=== PATIENT | female | born 1980 | race Caucasian/White ===

== ENCOUNTER 2021-01-19 12:24 | Outpatient (REF) | payer MEDICAID, SELFPAY | END 2021-01-19 12:25 | disposition home or self-care (01) | LOC: HO.LAB 12:24 | PROVIDERS: Visit Provider Internal Medicine | DX: Z20.822 Contact with and (suspected) exposure to COVID-19 (principal) | CPT/HCPCS: 36415; C9803; U0003; U0005 ==

== ENCOUNTER 2022-10-16 20:17 | Emergency (ER) | payer OTHER, SELFPAY ==
[2022-10-16 20:27] VITALS: BP 158/83; PULSE 91; RESP 20; TEMP 36.8; O2SAT 100; BMI 22.2
--- NOTE | 2022-10-16 20:36 | ED.SKABFB ---
HPI - Skin/Abscess/Foreign Bdy General Chief complaint: Skin/Abscess/Foreign Body <Edward Meléndez MD - Last Filed: 10/16/22 20:37> Stated complaint: rash on armpit <Edward Meléndez MD - Last Filed: 10/16/22 20:37> Time Seen by Provider: 10/16/22 20:39 <Edward Meléndez MD - Last Filed: 10/16/22 20:37> Source: patient <Chiquis Boateng CNP - Last Filed: 10/16/22 22:17> Mode of arrival: ambulatory <Chiquis Boateng CNP - Last Filed: 10/16/22 22:17> Limitations: no limitations <Chiquis Boateng CNP - Last Filed: 10/16/22 22:17> History of Present Illness HPI narrative: Patient is a 42-year-old female who presents emergency department for evaluation redness and burning pain with rash to the right axilla. First noticed this yesterday to have redness. Today after taking a shower when she went to dry off afterwards she noticed the area to be painful. Denies fevers, chills, swelling, drainage. Denies any new soaps, lotions, ointments, detergents <Chiquis Boateng CNP - Last Filed: 10/16/22 22:17> Related Data Home medications: Previous Rx's Medication Instructions Recorded hydrocortisone 1 % topical cream 1 appl topical TID PRN rash #28.35 10/16/22 grams <Edward Meléndez MD - Last Filed: 10/16/22 20:37> Allergies/Adverse reactions: Allergies Allergy/AdvReac Type Severity Reaction Status Date / Time acetaminophen [From Percocet] Allergy Rash Verified 10/16/22 20:35 levofloxacin [From Levaquin] Allergy Facial Verified 10/16/22 20:35 Swelling oxycodone [From Percocet] Allergy Rash Verified 10/16/22 20:35 <Edward Meléndez MD - Last Filed: 10/16/22 20:37> Review of Systems Review of Systems: Skin: Right axilla redness as noted in HPI <Chiquis Boateng CNP - Last Filed: 10/16/22 22:17> Yes all other systems are reviewed and are negative <Chiquis Boateng CNP - Last Filed: 10/16/22 22:17> [facility] Past Medical History Attestation statement: The following information was validated with the patient. <Chiquis Boateng CNP - Last Filed: 10/16/22 22:17> Source: old records reviewed <Chiquis Boateng CNP - Last Filed: 10/16/22 22:17> Social History Social History: Social History Advance Directives: No Advance Directives Information Provided: Yes <Edward Meléndez MD - Last Filed: 10/16/22 20:37> Physical Exam Vital Signs: Vital Signs: Last Vital Signs Temp 98.2 F 10/16/22 20:27 Pulse 91 10/16/22 20:27 Resp 20 10/16/22 20:27 BP 158/83 H 10/16/22 20:27 Pulse Ox 100 10/16/22 20:27 O2 Del Method 10/16/22 20:27 BMI result Body Mass Index 22.2 <Edward Meléndez MD - Last Filed: 10/16/22 20:37> Vital Signs: Last Vital Signs Temp 98.2 F 10/16/22 20:27 Pulse 91 10/16/22 20:27 Resp 20 10/16/22 20:27 BP 158/83 H 10/16/22 20:27 Pulse Ox 100 10/16/22 20:27 O2 Del Method 10/16/22 20:27 BMI result Body Mass Index 22.2 <Chiquis Boateng CNP - Last Filed: 10/16/22 22:17> Appearance: Alert.?Oriented to person, place and time. No acute distress.?Normal affect. Neck: Normal inspection.? Neck supple.?? CVS: Heart sounds normal. Normal heart rate and rhythm.? Pulses normal.?? Respiratory: No respiratory distress.? Lung sounds clear to auscultation bilaterally?? Abdomen: Soft and non-tender. Skin: Skin warm and dry.? Normal skin color. Right axilla with 1 cm area of maculopapular eruption, tenderness upon palpation. No warmth. No swelling. No abscess. No axillary adenopathy Extremities: No lower extremity edema.? Neuro: Moves all extremities spontaneously. Sensation intact bilaterally. Ambulates with normal steady gait. <Chiquis Boateng CNP - Last Filed: 10/16/22 22:17> Course Course Course Narrative: RME: 42-year-old female presents emergency department for evaluation of a red hot painful lump in the right axilla area. Patient not examined in triage. Most likely an abscess, no blood work ordered at this time. Patient stable was sent back to the triage area and will be brought back into the emergency department when a bed is available. <Edward Meléndez MD - Last Filed: 10/16/22 20:37> Medical Decision Making Medical Decision Making MDM Narrative: Patient is a 42-year-old female who presents emergency department for evaluation painful skin irritation at the right axilla. Physical examination consistent with a contact dermatitis, does not appear consistent with cellulitis at this time, no warmth, swelling, no signs of systemic toxicity.. Discussed daily cleansing, non scented soaps, provided with prescription for hydrocortisone cream. Discussed worrisome signs and symptoms that would warrant re-evaluation. Outpatient follow-up with primary care provider as needed. <Chiquis Boateng CNP - Last Filed: 10/16/22 22:17> Discharge Plan Discharge Clinical Impression: Contact dermatitis <Edward Meléndez MD - Last Filed: 10/16/22 20:37> Patient Disposition: Home, Self-Care <Edward Meléndez MD - Last Filed: 10/16/22 20:37> Instructions: Contact Dermatitis (ED) <Edward Meléndez MD - Last Filed: 10/16/22 20:37> Additional Instructions: As discussed, please keep the area clean and dry, use warm water and mild unscented soap. Apply steroid cream as prescribed Follow-up with your primary care provider as needed for continued symptoms Return to the emergency department with any new or worsening symptoms or concerns. <Edward Meléndez MD - Last Filed: 10/16/22 20:37> Prescriptions: New hydrocortisone 1 % cream 1 appl topical TID PRN (Reason: rash) Qty: 28.35 0RF <Edward Meléndez MD - Last Filed: 10/16/22 20:37>
== END 2022-10-16 22:30 | disposition home or self-care (01) ==
PROVIDERS: Emergency Provider Emergency Medicine
DX: L25.9 Unspecified contact dermatitis, unspecified cause (principal)
CPT/HCPCS: 99281; 99283

== ENCOUNTER 2022-12-18 13:53 | Emergency (ER) | payer OTHER, SELFPAY ==
--- NOTE | ~2022-12-18 | XR_ITS ---
EXAMINATION: XR CHEST CLINICAL INFORMATION: Chest pain COMPARISON: None TECHNIQUE: 2 views of the chest were obtained. FINDINGS: The lungs are clear. No airspace consolidation, pleural effusion, or pneumothorax. The cardiomediastinal silhouette is within normal limits. No acute osseous injury. XR/XR chest 2V IMPRESSION: No acute pulmonary process.
--- NOTE | ~2022-12-18 | CT_ITS ---
EXAMINATION: CT CERVICAL SPINE WITHOUT CONTRAST CLINICAL INFORMATION: Headaches and arm pain COMPARISON: None TECHNIQUE: Thin section axial imaging with sagittal and coronal reformats are obtained. This CT examination was performed using dose optimization techniques as appropriate, variously including the following: *Automated exposure control *Adjustment of mA and/or kV according to patient size (this includes techniques or standardized protocols for targeted exams where dose is matched to indication/reason for exam; i.e. extremities or head) *Use of iterative reconstruction technique DLP: 275.55 mGy-cm FINDINGS: There is advanced degenerative change noted at C5-C6 with disc space narrowing and anterior posterior spurring which does create slight mass effect on the ventral aspect of the canal but no celine cord compression. No fracture or destructive process. Prevertebral soft tissues are normal. CT/CT cervical spine wo IV con IMPRESSION: Degenerative change noted. No acute findings.
--- NOTE | ~2022-12-18 | CT_ITS ---
EXAMINATION: CT HEAD WITHOUT CONTRAST CLINICAL INFORMATION: Headaches COMPARISON: None TECHNIQUE: Contiguous axial imaging was performed from the skull base to vertex without intravenous administration of contrast. This CT examination was performed using dose optimization techniques as appropriate, variously including the following: *Automated exposure control *Adjustment of mA and/or kV according to patient size (this includes techniques or standardized protocols for targeted exams where dose is matched to indication/reason for exam; i.e. extremities or head) *Use of iterative reconstruction technique DLP: 652 mGy-cm FINDINGS: No intra or extra-axial fluid collection or hemorrhage, mass or mass effect. Cavum septum pellucidum and/or vergae noted. Calvarium intact. CT/CT head/brain wo IV con IMPRESSION: No acute intracranial pathology.
[2022-12-18 14:25] VITALS: BP 168/111; PULSE 90; RESP 20; TEMP 36.7; O2SAT 98; BMI 22.2
--- NOTE | 2022-12-18 14:28 | ED_ITS ---
HPI - Extremity Injury (Upper) General Chief Complaint: General Medical <MABLE Frias - Last Filed: 12/18/22 14:38> Stated Complaint: chest/R shoulder pain <MABLE Frias - Last Filed: 12/18/22 14:38> Time Seen by Provider: 12/18/22 17:22 <MABLE Frias - Last Filed: 12/18/22 14:38> Source: patient and bilingual interpreter <Clarissa Jc MD - Last Filed: 12/18/22 19:07> Mode of arrival: ambulatory <Clarissa Jc MD - Last Filed: 12/18/22 19:07> History of Present Illness HPI narrative: 42-year-old female with history of hypertension presents with 4 days of right upper extremity numbness and tingling that has not prevented her from performing her ADLs. She denies any associated fever, chills, traumatic event in states that she ?woke up 1 morning and was having this problem . She denies any sore throat, cough, neck pain and denies any other associated facial asymmetry, right lower extremity weakness, she states that approximately 2 days ago she began having sharp chest pain that was not associated with any recent travel and she denies any association with deep inspiration. Patient also complaints about right ankle pain that is atraumatic in nature. Patient also reports a headache and states that she took Tylenol for this. <Clarissa Jc MD - Last Filed: 12/18/22 19:07> Related Data Home Medications: Previous Rx's Medication Instructions Recorded hydrocortisone 1 % topical cream 1 appl topical TID PRN rash #28.35 10/16/22 grams ketorolac 10 mg tablet 10 mg PO Q6H PRN pain 5 days #20 12/18/22 tabs <MABLE Frias - Last Filed: 12/18/22 14:38> Allergies/Adverse Reactions: Allergies Allergy/AdvReac Type Severity Reaction Status Date / Time acetaminophen [From Percocet] Allergy Rash Verified 12/18/22 14:37 levofloxacin [From Levaquin] Allergy Facial Verified 12/18/22 14:37 Swelling oxycodone [From Percocet] Allergy Rash Verified 12/18/22 14:37 <MABLE Frias - Last Filed: 12/18/22 14:38> Review of Systems Review of Systems: Pertinent positives and negatives as stated in HPI <Clarissa Jc MD - Last Filed: 12/18/22 19:07> PMFSH Past Medical History Source: nursing notes reviewed <Clarissa Jc MD - Last Filed: 12/18/22 19:07> Social History Social History: Social History Advance Directives: No Advance Directives Information Provided: No <MABLE Frias - Last Filed: 12/18/22 14:38> Physical Exam Vital Signs: Vital Signs: Last Vital Signs Temp 98.5 F 12/18/22 18:19 Pulse 75 12/18/22 18:19 Resp 16 12/18/22 18:19 BP 165/88 H 12/18/22 18:19 Pulse Ox 100 12/18/22 18:19 O2 Del Method 12/18/22 18:19 BMI result Body Mass Index 22.2 <MABLE Frias - Last Filed: 12/18/22 14:38> Vital Signs: Last Vital Signs Temp 98.5 F 12/18/22 18:19 Pulse 75 12/18/22 18:19 Resp 16 12/18/22 18:19 BP 165/88 H 12/18/22 18:19 Pulse Ox 100 12/18/22 18:19 O2 Del Method 12/18/22 18:19 BMI result Body Mass Index 22.2 VITAL SIGNS: Reviewed. GENERAL: Well developed, well nourished, in no acute distress. HEAD: Normocephalic/atraumatic EYES: PERRLA, EOMI EARS: Ext canals without abnormality LUNGS: Normal breath sounds. No adventitious sounds or accessory muscle use. SpO2<98> CARDIOVASCULAR: Regular rate and rhythm without noted murmurs ABDOMEN: Soft, non-tender, non-distended with bowel sounds. MUSCULOSKELETAL: No tenderness, deformities, or effusions noted on gross inspection. EXTREMITIES: No cyanosis, clubbing or edema. RIGHT UPPER EXTREMITY: Shoulder without deformity/tenderness to palpations/induration/erythema, full range of motion noted; elbow without deformity, there is full range of motion, forearm is tender to palpation at the mid point without erythema/induration/injury; RIGHT ANKLE: Full range of motion, neurovascularly intact, no deformity/erythema/induration. SKIN: Inspection of the skin reveals no rashes NEUROLOGIC: Alert and oriented x 4. Strength and sensation to light touch were grossly intact x 4, no facial asymmetry, no pronator drift, cranial nerves 2-12 are grossly intact. <Clarissa Jc MD - Last Filed: 12/18/22 19:07> Course Course Course Narrative: RME: [id number]-female, with a past medical history of HTN, presenting today with complaints of right arm numbness/tingling/pain, right heel pain x 4 days, and chest pain since yesterday. Denies fevers or recent illness. She also reports stabbing chest pain. No injury or trauma to her right arm or neck. Diffuse tenderness to the right upper extremity and right heel BP 188/104 in triage. Repeat 168/111. Labs, EKG, CT c-spine and CT head ordered. Patient is stable to return to the waiting room until a room becomes available in the main ER. <MALBE Frias - Last Filed: 12/18/22 14:38> Medications Administered Discontinued Medications Generic Name Dose Route Start Last Admin Trade Name Freq PRN Reason Stop Dose Admin Acetaminophen 975 mg 12/18/22 17:49 12/18/22 18:21 Acetaminophen 325 Mg Tablet PO 12/18/22 17:50 975 mg ONCE ONE Administration Ketorolac Tromethamine 15 mg 12/18/22 17:49 12/18/22 18:20 Ketorolac Tromethamine 15 Mg/Ml Vial IM 12/18/22 17:50 15 mg ONCE ONE Administration <MABLE Frias - Last Filed: 12/18/22 14:38> Medications Administered Discontinued Medications Generic Name Dose Route Start Last Admin Trade Name Freq PRN Reason Stop Dose Admin Acetaminophen 975 mg 12/18/22 17:49 12/18/22 18:21 Acetaminophen 325 Mg Tablet PO 12/18/22 17:50 975 mg ONCE ONE Administration Ketorolac Tromethamine 15 mg 12/18/22 17:49 12/18/22 18:20 Ketorolac Tromethamine 15 Mg/Ml Vial IM 12/18/22 17:50 15 mg ONCE ONE Administration <Clarissa Jc MD - Last Filed: 12/18/22 19:07> Medical Decision Making Medical Decision Making [facility] Narrative: 42-year-old female with history and clinical presentation after review of all investigations my interpretation is that patient is suffering from likely cervical radiculopathy, patient is PERC negative without acute troponin/EKG changes. Giving patient combination analgesics and will re-evaluate. I did speak with the patient extensively and reinforce the fact that she will need to follow-up with her primary care doctor for re-evaluation further outpatient management of her cervical radiculopathy. Patient states that she is taking her blood pressure medication as prescribed. 1902: On re-evaluation patient states that she is feeling much better, on review of repeat blood pressure and has improved. Patient will be discharged with combination analgesics instructions as well as a suggestion for her to begin using a splint does lined for carpal tunnel. She was informed of all results and is stable for discharge. <Clarissa Jc MD - Last Filed: 12/18/22 19:07> Differential Diagnosis Differential Diagnoses: The differential diagnosis associated with the presentation includes <Clarissa Jc MD - Last Filed: 12/18/22 19:07> Please see the discussion above <Clarissa Jc MD - Last Filed: 12/18/22 19:07> Lab Data [facility] Lab Attestation statement: I reviewed the patient's lab results. <Clarissa Jc MD - Last Filed: 12/18/22 19:07> Please see the discussion above <Clarissa Jc MD - Last Filed: 12/18/22 19:07> Result Diagrams: 12/18/22 14:49 12/18/22 14:49 <MABLE Frias - Last Filed: 12/18/22 14:38> Labs: Lab Results 12/18/22 12/18/22 12/18/22 Range/Units 14:49 14:49 14:49 WBC 11.6 H (4.8-10.8) X10*3/uL RBC 4.09 L (4.20-5.50) X10*6/uL Hgb 12.5 (12.0-16.0) g/dl Hct 37.5 (37.0-47.0) % MCV 91.7 (80.0-98.0) fL MCH 30.6 (27.0-33.0) pg MCHC 33.3 (31.0-35.0) g/dl RDW 13.2 (11.0-16.0) % Plt Count 290 (160-400) X10*3/uL MPV 11.1 (9.4-12.3) fL Immature Gran % (Auto) 0.3 (0.0-0.4) % Neut % (Auto) 66.0 (45-73) % Lymph % (Auto) 23.9 (20-40) % Foster % (Auto) 7.6 (2-11) % Eos % (Auto) 1.6 (0-4) % Baso % (Auto) 0.6 (0-2) % Lymph # (Auto) 2.8 (1.2-4.9) X10*3/uL Foster # (Auto) 0.9 (0.1-1.2) X10*3/uL Eos # (Auto) 0.2 (0.0-0.4) X10*3/uL Baso # (Auto) 0.1 (0.0-0.2) X10*3/uL Abs Immat Gran (auto) 0.04 H (0.00-0.03) X10*3/uL Absolute Neuts (auto) 7.7 (2.0-8.3) x10*3/uL Absolute Nucleated RBC 0.000 (0.0-0.012) X10*3/uL Nucleated RBC % (auto) 0.0 (0.0-0.2) /100WBC Sodium 141 (135-145) mmol/L Potassium 4.3 (3.3-5.1) mmol/L Chloride 106 (96-108) mmol/L Carbon Dioxide 26 (22-29) mmol/L Anion Gap 13 (12-20) BUN 16 (9-16) mg/dL Creatinine 0.74 (0.5-1.4) mg/dL Estim Creat Clear Calc 67.5 Estimated GFR > 60 Random Glucose 86 (60-115) mg/dL Calcium 9.5 (8.4-10.2) mg/dL Magnesium 1.8 (1.6-2.6) mg/dL Total Bilirubin 0.2 (0.0-1.0) mg/dL Direct Bilirubin < 0.2 (0.0-0.5) mg/dL AST 20 (5-31) U/L ALT 21 (0-31) U/L Alkaline Phosphatase 103 (39-117) U/L Troponin I High Sens < 3.5 (<3.5-17.0) ng/L Total Protein 7.1 (6.5-8.0) g/dL Albumin 4.4 (3.5-5.0) g/dL Beta HCG, Quant < 2 mIU/mL <MABLE Frias - Last Filed: 12/18/22 14:38> Lab Results 12/18/22 12/18/22 12/18/22 Range/Units 14:49 14:49 14:49 WBC 11.6 H (4.8-10.8) X10*3/uL RBC 4.09 L (4.20-5.50) X10*6/uL Hgb 12.5 (12.0-16.0) g/dl Hct 37.5 (37.0-47.0) % MCV 91.7 (80.0-98.0) fL MCH 30.6 (27.0-33.0) pg MCHC 33.3 (31.0-35.0) g/dl RDW 13.2 (11.0-16.0) % Plt Count 290 (160-400) X10*3/uL MPV 11.1 (9.4-12.3) fL Immature Gran % (Auto) 0.3 (0.0-0.4) % Neut % (Auto) 66.0 (45-73) % Lymph % (Auto) 23.9 (20-40) % Foster % (Auto) 7.6 (2-11) % Eos % (Auto) 1.6 (0-4) % Baso % (Auto) 0.6 (0-2) % Lymph # (Auto) 2.8 (1.2-4.9) X10*3/uL Foster # (Auto) 0.9 (0.1-1.2) X10*3/uL Eos # (Auto) 0.2 (0.0-0.4) X10*3/uL Baso # (Auto) 0.1 (0.0-0.2) X10*3/uL Abs Immat Gran (auto) 0.04 H (0.00-0.03) X10*3/uL Absolute Neuts (auto) 7.7 (2.0-8.3) x10*3/uL Absolute Nucleated RBC 0.000 (0.0-0.012) X10*3/uL Nucleated RBC % (auto) 0.0 (0.0-0.2) /100WBC Sodium 141 (135-145) mmol/L Potassium 4.3 (3.3-5.1) mmol/L Chloride 106 (96-108) mmol/L Carbon Dioxide 26 (22-29) mmol/L Anion Gap 13 (12-20) BUN 16 (9-16) mg/dL Creatinine 0.74 (0.5-1.4) mg/dL Estim Creat Clear Calc 67.5 Estimated GFR > 60 Random Glucose 86 (60-115) mg/dL Calcium 9.5 (8.4-10.2) mg/dL Magnesium 1.8 (1.6-2.6) mg/dL Total Bilirubin 0.2 (0.0-1.0) mg/dL Direct Bilirubin < 0.2 (0.0-0.5) mg/dL AST 20 (5-31) U/L ALT 21 (0-31) U/L Alkaline Phosphatase 103 (39-117) U/L Troponin I High Sens < 3.5 (<3.5-17.0) ng/L Total Protein 7.1 (6.5-8.0) g/dL Albumin 4.4 (3.5-5.0) g/dL Beta HCG, Quant < 2 mIU/mL <Clarissa Jc MD - Last Filed: 12/18/22 19:07> Independent Interpretation I performed an independent interpretation of an: EKG <Clarissa Jc MD - Last Filed: 12/18/22 19:07> Interpretation: Normal sinus rhythm, HR-93, no STEMI, NC/QRS/QTC is within normal limits. <Clarissa Jc MD - Last Filed: 12/18/22 19:07> Radiology Impression Radiologist Impression: My interpretation is in agreement with radiology's impression of the imaging study. <Clarissa Jc MD - Last Filed: 12/18/22 19:07> External Record Review External record reviewed: Outpatient record and Prior outpatient labs <Clarissa Jc MD - Last Filed: 12/18/22 19:07> Discharge Plan Discharge Clinical Impression: Cervical radiculopathy, Costochondritis, Carpal tunnel syndrome <MABLE Frias - Last Filed: 12/18/22 14:38> Patient Disposition: Home, Self-Care <MABLE Frias - Last Filed: 12/18/22 14:38> Instructions: Paresthesia (ED), Cervical Radiculopathy (ED) <MABLE Frias - Last Filed: 12/18/22 14:38> Additional Instructions: 1. Reanudar todos los medicamentos en el hogar. 2. Tylenol 1000 mg, por v?a oral, cada 6 horas seg?n sea necesario para controlar el dolor. No exceda los 4000 mg dentro de las 24 horas. 3. Recomendamos comprar darien f?delores de cualquier [facility] dise?ada para el t?teddy carpiano. Si no puede encontrar 1, consulte al farmac?utico. 4. Realice un seguimiento con el proveedor de atenci?n primaria en los pr?ximos 1 a 2 d?as para darien reevaluaci?n adicional del manejo ambulatorio. Regrese a la heidy de emergencias si los s?ntomas empeoran. 1. Resume all home medication. 2. Tylenol 1000 mg, orally, every 6 hours as needed for pain control. Do not exceed 4000 mg within 24 hours. 3. Recommend purchasing a splint from any [facility] designed for carpal tunnel. If you are unable to find 1 please ask the pharmacist. 4. Please follow-up with the primary care provider in the next 1-2 days for re- evaluation further outpatient management. Return to the ER for any worsening symptoms. <MABLE Frias - Last Filed: 12/18/22 14:38> Prescriptions: New ketorolac 10 mg tablet 10 mg PO Q6H PRN (Reason: pain) 5 Days Qty: 20 0RF Rx Instructions: 1. Patient received Toradol in the emergency room. 2. Please instruct the patient to stop all other NSAIDs. No Action hydrocortisone 1 % cream 1 appl topical TID PRN (Reason: rash) Qty: 28.35 0RF <MABLE Frias - Last Filed: 12/18/22 14:38> Print Language: Yakut <MABLE Frias - Last Filed: 12/18/22 14:38>
--- NOTE | 2022-12-18 14:36 | ECG_ITS ---
Test Reason : CHEST PAIN Blood Pressure : / mmHG Vent. Rate : 093 BPM Atrial Rate : 093 BPM P-R Int : 138 ms QRS Dur : 076 ms QT Int : 352 ms P-R-T Axes : 071 068 065 degrees QTc Int : 437 ms Normal sinus rhythm Normal ECG No previous ECGs available Referred By: Susana Lincoln Electronically Signed By:DUNIA OH
[2022-12-18 14:58] LABS: MANUAL DIFF FLAG NO
[2022-12-18 15:00] LABS: Basophils Absolute Auto 0.1 X10*3/uL (0.0-0.2); Basophils Percent Auto 0.6 % (0-2); Eosinophils Absolute Auto 0.2 X10*3/uL (0.0-0.4); Eosinophils Percent Auto 1.6 % (0-4); Hematocrit 37.5 % (37.0-47.0); Hemoglobin 12.5 g/dl (12.0-16.0); Imm Gran Abs Auto 0.04 X10*3/uL (0.00-0.03); Imm Gran Pct Auto 0.3 % (0.0-0.4); Lymphocytes Absolute Auto 2.8 X10*3/uL (1.2-4.9); Lymphocytes Percent Auto 23.9 % (20-40); Mean Corpuscular HGB Conc 33.3 g/dl (31.0-35.0); Mean Corpuscular Hemoglobin 30.6 pg (27.0-33.0); Mean Corpuscular Volume 91.7 fL (80.0-98.0); Mean Platelet Volume 11.1 fL (9.4-12.3); Monocytes Absolute Auto 0.9 X10*3/uL (0.1-1.2); Monocytes Percent Auto 7.6 % (2-11); Neutrophils Absolute Auto 7.7 x10*3/uL (2.0-8.3); Platelet Count 290 X10*3/uL (160-400); Red Blood Count 4.09 X10*6/uL (4.20-5.50); Red Cell Distribution Width 13.2 % (11.0-16.0); White Blood Count 11.6 X10*3/uL (4.8-10.8)
[2022-12-18 16:24] LABS: Alanine Aminotransferase 21 U/L (0-31); Albumin Level 4.4 g/dL (3.5-5.0); Alkaline Phosphatase 103 U/L (39-117); Anion Gap 13 (12-20); Aspartate Amino Transferase 20 U/L (5-31); Bilirubin Direct < 0.2 mg/dL (0.0-0.5); Bilirubin Total 0.2 mg/dL (0.0-1.0); Blood Urea Nitrogen 16 mg/dL (9-16); Calcium 9.5 mg/dL (8.4-10.2); Carbon Dioxide 26 mmol/L (22-29); Chloride 106 mmol/L (96-108); Creatinine Clr Calc Pharmacy 67.5; Estimated Glomerular Filt Rate > 60; Glucose Random 86 mg/dL (60-115); Magnesium 1.8 mg/dL (1.6-2.6); Potassium 4.3 mmol/L (3.3-5.1); Sodium 141 mmol/L (135-145); Total Protein 7.1 g/dL (6.5-8.0)
[2022-12-18 16:36] LABS: Troponin-I High Sensitivity < 3.5 ng/L (<3.5-17.0)
[2022-12-18 18:19] VITALS: BP 165/88; PULSE 75; RESP 16; TEMP 36.9; O2SAT 100
[2022-12-18] MEDS: Ketorolac Tromethamine 15 MG/ML VIAL IM (18:20)
[2022-12-18] MEDS: Acetaminophen 325 MG TABLET 975 MG PO (18:21)
[2022-12-18 18:23] LABS: HCG Quantitative < 2 mIU/mL
== END 2022-12-18 19:19 | disposition home or self-care (01) ==
PROVIDERS: Physician Assistant; Emergency Provider Student in an Organized Health Care Education/Training Program
DX: M54.12 Radiculopathy, cervical region (principal); M94.0 Chondrocostal junction syndrome [Tietze]; R07.89 Other chest pain; M25.511 Pain in right shoulder; R51.9 Headache, unspecified; M54.2 Cervicalgia; Z79.899 Other long term (current) drug therapy
CPT/HCPCS: 36415; 70450; 71046; 72125; 80048; 80076; 83735; 84484; 84702; 85025; 93005; 96372; 99284; 99285; J1885

== ENCOUNTER 2023-04-08 07:32 | Emergency (ER) | payer OTHER, SELFPAY ==
--- NOTE | ~2023-04-08 | XR_ITS ---
EXAMINATION: XR CHEST CLINICAL INFORMATION: Cough and shortness of breath COMPARISON: . TECHNIQUE: 2 views of the chest were obtained. FINDINGS: No significant abnormality is noted involving the heart, lungs, mediastinum, bony thorax or soft tissues. XR/XR chest 2V IMPRESSION: Unremarkable examination with no interval change.
[2023-04-08 07:37] VITALS: BP 191/97; PULSE 131; RESP 18; TEMP 37; O2SAT 97; BMI 26.0
[2023-04-08 07:42] VITALS: BP 191/97; PULSE 131; RESP 18; TEMP 37; O2SAT 98
--- NOTE | 2023-04-08 07:43 | PC.NURSE ---
Alert and oriented. Arrived from home stating she has not felt good for the past two days. States has been coughing with sob with body aches and chills. States feels worse today than yesterday. BP elevated- patient stating that she always has high BP but did take her lisinopril today. Denies chest pain or headache. Lungs clear, no sob noted at rest.
--- NOTE | 2023-04-08 07:45 | ED.GENADULT ---
HPI - General Adult General Chief complaint: General Medical Stated complaint: Body Aches Cough Time Seen by Provider: 04/08/23 07:45 Source: patient and auto damage adjuster Mode of arrival: ambulatory Limitations: language barrier History of Present Illness HPI narrative: Patient is a 42 year old assigned female at with no reported medical history presenting to the emergency department today with a cough and body aches. Patient states that starting yesterday she began to have a cough and body aches. Patient denies any dizziness, lightheadedness, abdominal pain, nausea, vomiting, fever, chills, blurry vision, double vision, loss of vision, chest pain, difficulty breathing, shortness of breath, back pain, night sweats, pain with urination, increased urinary frequency, increased urinary urgency, blood in her urine or stool, syncope or a near syncopal episode, recent trauma or falls, bowel incontinence, bladder incontinence, bowel retention, bladder retention, or any other complaints at this time. Onset (ago): day(s) (1) Severity: mild Severity scale (1-10): 3 Relieving factors: none Exacerbating factors: none Associated symptoms: cough Treatments prior to arrival: none Related Data Previous Rx's Medication Instructions Recorded hydrocortisone 1 % topical cream 1 appl topical TID PRN rash #28.35 10/16/22 grams ketorolac 10 mg tablet 10 mg PO Q6H PRN pain 5 days #20 12/18/22 tabs albuterol sulfate 90 mcg/actuation 1 inh inhalation QID PRN shortness 04/08/23 aerosol inhaler of breath or wheezing #8.5 grams benzonatate 100 mg capsule 100 mg PO BID PRN cough 7 days #14 04/08/23 caps doxycycline hyclate 100 mg tablet 100 mg PO BID 7 days #14 tabs 04/08/23 prednisone 20 mg tablet 20 mg PO DAILY 7 days #7 tabs 04/08/23 Allergies Allergy/AdvReac Type Severity Reaction Status Date / Time acetaminophen [From Percocet] Allergy Rash Verified 12/18/22 14:37 levofloxacin [From Levaquin] Allergy Facial Verified 12/18/22 14:37 Swelling oxycodone [From Percocet] Allergy Rash Verified 12/18/22 14:37 Review of Systems Constitutional: Constitutional: Reports no additional constitutional complaints, Reports body ache(s), Denies chills, Denies fever(s) and Denies night sweats Eyes: Eyes: Reports no additional eye complaints, Denies blurry vision, Denies change in vision, Denies diplopia, Denies eye discharge, Denies loss of vision and Denies eye pain ENT: Denies dizziness Cardiovascular: Cardiovascular: Reports no additional cardiovascular complaints, Denies chest pain, Denies lightheadedness, Denies Loss of Consciousness and Denies dyspnea Respiratory: Respiratory: Reports no additional respiratory complaints, Reports cough and Denies dyspnea Gastrointestinal: Gastrointestinal: Reports no additional gastrointestinal complaints, Denies abdominal pain, Denies melena, Denies hematochezia, Denies change in bowel habits and Denies change in stool character Genitourinary: Genitourinary: Denies hematuria, Denies urinary frequency, Denies dysuria, Denies urinary incontinence, Denies urinary hesitancy and Denies urinary urgency Musculoskeletal: Musculoskeletal: Reports no additional musculoskeletal complaints, Denies numbness and Denies tingling Neurologic: Denies dizziness, Denies loss of vision, Denies numbness and Denies tingling Psychiatric: Psychiatric: Reports no additional psychiatric complaints Endocrine: Endocrine: Reports no additional endocrine complaints Hematologic/Lymphatic: Hematologic/Lymphatic: Reports no additional hematologic/lymphatic complaints Allergic/Immunologic: Allergic/Immunologic: Reports no additional allergic/immunologic complaints PMFSH Past Medical History Attestation statement: The following information was validated with the patient. Source: old records reviewed and nursing notes reviewed Social History Social History Alcohol intake: former Smoked in Last 30 Days: Yes Use of substances other than those prescribed or required for medical reasons: No Advance Directives: No Advance Directives Information Provided: No Physical Exam ED Vital Signs: Vital Signs - 24 hr 04/08/23 07:37 04/08/23 07:42 04/08/23 09:20 Temperature 98.6 F 98.6 F 98.6 F Pulse Rate 131 H 131 H 87 Respiratory Rate 18 18 20 Blood Pressure 191/97 H 191/97 H 158/88 H Pulse Oximetry 97 98 100 Oxygen Delivery Method Room Air Room Air Room Air BMI result Body Mass Index 26.0 Const General: cooperative, no acute distress, alert and awake Nutritional Appearance: well nourished Orientation/consciousness: patient oriented x3 Limitations: no limitations HENMT Head: Yes normal to inspection and Yes atraumatic Ears: hearing grossly normal bilaterally and external ears normal General nose exam: Normal external nose present, no nasal discharge noted and no epistaxis Face and sinus: Yes normal facial exam, No abrasion and No laceration Mouth: Normal oral and palatal mucosa present, no drooling and no muffled voice Eyes General: appearance normal, both eyes and all related structures Periorbital: periorbital findings normal Eyelids: Yes eyelids normal Conjunctivae: conjunctivae normal Pupils: Equal, round and reactive pupils present EOM: EOMs intact bilaterally Neck Neck: Yes normal visual inspection, Yes full ROM and Yes no lymphadenopathy Chest Chest palpation & inspection: normal inspection of the chest Resp Effort & Inspection: normal respiratory effort and able to speak in complete sentences Auscultation: clear to auscultation bilaterally Cardio Rate: regular rate Rhythm: regular rhythm GI Inspection: Yes normal to inspection Palpation (GI): Soft to palpation, not firm, nontender and no guarding Neuro General: patient oriented x3 and moves all extremities Cranial nerves: Yes Equal, round and reactive pupils present Cognition (Neuro): normal cognition Motor exam (neuro): 5/5 motor strength present throughout Sensory Exam: Normal double simultaneous stimulation for sensation Coordination: [id number] test normal Extrem General: Yes normal to inspection, Yes full ROM and Yes capillary refill normal Psych Appearance: grossly normal Mental Status: mental status grossly normal Affect: normal affect Attitude: cooperative Thought process: Normal thought process present Thought content: Normal thought content present Insight: Good insight present (Psych) Medications Administered Discontinued Medications Generic Name Dose Route Start Last Admin Trade Name Morisq PRN Reason Stop Dose Admin Benzonatate 100 mg 04/08/23 08:17 04/08/23 09:05 Benzonatate 100 Mg Capsule PO 04/08/23 08:18 100 mg ONCE ONE Administration Methylprednisolone Sodium Succinate 60 mg 04/08/23 08:17 04/08/23 09:05 Methylprednisolone Sod Succ 125 Mg/2 Ml Vial IVPUSH 04/08/23 08:18 60 mg ONCE ONE Administration Medical Decision Making Medical Decision Making [facility] Narrative: Patient is a 42 year old assigned female at with no reported medical history presenting to the emergency department today with a cough and body aches. Patient's physical exam was unremarkable. Patient's blood work showed a slightly elevated WBC count however, the patient's clinical presentation is not consistent with sepsis (@0930). Patient's urine showed no acute process. Patient's EKG was unremarkable. Patient's chest x-ray showed no acute process. I explained my physical exam findings as well as all test results to the patient. I answered all questions asked by the patient. I stressed the importance of the patient taking her medication as prescribed. I stressed the importance of the patient following up with her primary care provider. I stressed the importance of the patient returning to the emergency department immediately if her symptoms were to worsen or if she were to develop any dizziness, shortness of breath, difficulty breathing, chest pain, blurry vision, loss of vision, nausea, vomiting, abdominal pain, fever, chills, back pain, or any other complaints. Patient verbalized agreement and understanding with this treatment plan and discharge. Differential Diagnosis Differential Diagnoses: The differential diagnosis associated with the presentation includes URI Admission/Observation Consideration of admission/observation: Escalation of care including admission/observation considered Patient would have been admitted to the hospital had her work up had any findings where hospital admission was appropriate. Lab Data MDM Lab Attestation statement: I reviewed the patient's lab results. My interpretation of these studies and their corresponding values is that they are grossly normal. 04/08/23 08:17 04/08/23 08:17 Labs: Lab Results 04/08/23 04/08/23 04/08/23 Range/Units 08:15 08:15 08:16 WBC (4.8-10.8) X10*3/uL RBC (4.20-5.50) X10*6/uL Hgb (12.0-16.0) g/dl Hct (37.0-47.0) % MCV (80.0-98.0) fL MCH (27.0-33.0) pg MCHC (31.0-35.0) g/dl RDW (11.0-16.0) % Plt Count (160-400) X10*3/uL MPV (9.4-12.3) fL Immature Gran % (Auto) (0.0-0.4) % Neut % (Auto) (45-73) % Lymph % (Auto) (20-40) % [place] % (Auto) (2-11) % Eos % (Auto) (0-4) % Baso % (Auto) (0-2) % Lymph # (Auto) (1.2-4.9) X10*3/uL [place] # (Auto) (0.1-1.2) X10*3/uL Eos # (Auto) (0.0-0.4) X10*3/uL Baso # (Auto) (0.0-0.2) X10*3/uL Abs Immat Gran (auto) (0.00-0.03) X10*3/uL Absolute Neuts (auto) (2.0-8.3) x10*3/uL Absolute Nucleated RBC (0.0-0.012) X10*3/uL Nucleated RBC % (auto) (0.0-0.2) /100WBC PT (10.0-13.1) SEC INR (0.9-1.1) APTT (26.0-36.4) SEC VBG pH (7.32-7.43) VBG pCO2 mmHg VBG pO2 mmHg VBG HCO3 (22-26) mmol/L VBG O2 Saturation % VBG Base Excess mmol/L Sodium (135-145) mmol/L Potassium (3.3-5.1) mmol/L Chloride (96-108) mmol/L Carbon Dioxide (22-29) mmol/L Anion Gap (12-20) BUN (9-16) mg/dL Creatinine (0.5-1.4) mg/dL Estim Creat Clear Calc Estimated GFR Random Glucose (60-115) mg/dL Lactic Acid 1.7 (0.5-2.0) mmol/L Calcium (8.4-10.2) mg/dL Magnesium (1.6-2.6) mg/dL Total Bilirubin (0.0-1.0) mg/dL AST (5-31) U/L ALT (0-31) U/L Alkaline Phosphatase (39-117) U/L Troponin I High Sens < 2.7 (<3.5-17.0) ng/L Total Protein (6.5-8.0) g/dL Albumin (3.5-5.0) g/dL Urine Color Urine Appearance Urine pH (5.0-9.0) Ur Specific [place] (1.005-1.025) Urine Protein (Neg-Trace) mg/dL Urine Glucose (UA) (Negative) mg/dL Urine Ketones (Negative) mg/dL Urine Blood (Negative) Urine Nitrite (Negative) Ur Leukocyte Esterase (Negative) COVID-19 (JING) Negative (Negative) COVID-19 Clin Com See Note Influenza Type A (MIKE) (Negative) Influenza Type B (MIKE) (Negative) Influenza A & B Note S. pyogenes GrpA MIKE (Negative) 04/08/23 04/08/23 04/08/23 Range/Units 08:16 08:17 08:17 WBC 13.7 H (4.8-10.8) X10*3/uL RBC 4.42 (4.20-5.50) X10*6/uL Hgb 13.0 (12.0-16.0) g/dl Hct 39.5 (37.0-47.0) % MCV 89.4 (80.0-98.0) fL MCH 29.4 (27.0-33.0) pg MCHC 32.9 (31.0-35.0) g/dl RDW 13.1 (11.0-16.0) % Plt Count 283 (160-400) X10*3/uL MPV 11.2 (9.4-12.3) fL Immature Gran % (Auto) 0.3 (0.0-0.4) % Neut % (Auto) 77.3 H (45-73) % Lymph % (Auto) 13.0 L (20-40) % [place] % (Auto) 8.3 (2-11) % Eos % (Auto) 0.7 (0-4) % Baso % (Auto) 0.4 (0-2) % Lymph # (Auto) 1.8 (1.2-4.9) X10*3/uL [place] # (Auto) 1.1 (0.1-1.2) X10*3/uL Eos # (Auto) 0.1 (0.0-0.4) X10*3/uL Baso # (Auto) 0.1 (0.0-0.2) X10*3/uL Abs Immat Gran (auto) 0.04 H (0.00-0.03) X10*3/uL Absolute Neuts (auto) 10.6 H (2.0-8.3) x10*3/uL Absolute Nucleated RBC 0.000 (0.0-0.012) X10*3/uL Nucleated RBC % (auto) 0.0 (0.0-0.2) /100WBC PT (10.0-13.1) SEC INR (0.9-1.1) APTT (26.0-36.4) SEC VBG pH (7.32-7.43) VBG pCO2 mmHg VBG pO2 mmHg VBG HCO3 (22-26) mmol/L VBG O2 Saturation % VBG Base Excess mmol/L Sodium 142 (135-145) mmol/L Potassium 4.2 (3.3-5.1) mmol/L Chloride 108 (96-108) mmol/L Carbon Dioxide 26 (22-29) mmol/L Anion Gap 12 (12-20) BUN 12 (9-16) mg/dL Creatinine 0.86 (0.5-1.4) mg/dL Estim Creat Clear Calc 66.3 Estimated GFR > 60 Random Glucose 77 (60-115) mg/dL Lactic Acid (0.5-2.0) mmol/L Calcium 9.7 (8.4-10.2) mg/dL Magnesium 2.0 (1.6-2.6) mg/dL Total Bilirubin 0.3 (0.0-1.0) mg/dL AST 17 (5-31) U/L ALT 13 (0-31) U/L Alkaline Phosphatase 93 (39-117) U/L Troponin I High Sens (<3.5-17.0) ng/L Total Protein 7.1 (6.5-8.0) g/dL Albumin 4.5 (3.5-5.0) g/dL Urine Color Urine Appearance Urine pH (5.0-9.0) Ur Specific [place] (1.005-1.025) Urine Protein (Neg-Trace) mg/dL Urine Glucose (UA) (Negative) mg/dL Urine Ketones (Negative) mg/dL Urine Blood (Negative) Urine Nitrite (Negative) Ur Leukocyte Esterase (Negative) COVID-19 (JING) (Negative) COVID-19 Clin Com Influenza Type A (MIKE) Negative (Negative) Influenza Type B (MKIE) Negative (Negative) Influenza A & B Note See Note S. pyogenes GrpA MIKE (Negative) 04/08/23 04/08/23 04/08/23 Range/Units 08:27 08:31 08:33 WBC (4.8-10.8) X10*3/uL RBC (4.20-5.50) X10*6/uL Hgb (12.0-16.0) g/dl Hct (37.0-47.0) % MCV (80.0-98.0) fL MCH (27.0-33.0) pg MCHC (31.0-35.0) g/dl RDW (11.0-16.0) % Plt Count (160-400) X10*3/uL MPV (9.4-12.3) fL Immature Gran % (Auto) (0.0-0.4) % Neut % (Auto) (45-73) % Lymph % (Auto) (20-40) % [place] % (Auto) (2-11) % Eos % (Auto) (0-4) % Baso % (Auto) (0-2) % Lymph # (Auto) (1.2-4.9) X10*3/uL [place] # (Auto) (0.1-1.2) X10*3/uL Eos # (Auto) (0.0-0.4) X10*3/uL Baso # (Auto) (0.0-0.2) X10*3/uL Abs Immat Gran (auto) (0.00-0.03) X10*3/uL Absolute Neuts (auto) (2.0-8.3) x10*3/uL Absolute Nucleated RBC (0.0-0.012) X10*3/uL Nucleated RBC % (auto) (0.0-0.2) /100WBC PT 11.4 (10.0-13.1) SEC INR 1.0 (0.9-1.1) APTT 31.0 (26.0-36.4) SEC VBG pH 7.44 H (7.32-7.43) VBG pCO2 34 mmHg VBG pO2 75 mmHg VBG HCO3 23 (22-26) mmol/L VBG O2 Saturation 96.0 % VBG Base Excess 0.0 mmol/L Sodium (135-145) mmol/L Potassium (3.3-5.1) mmol/L Chloride (96-108) mmol/L Carbon Dioxide (22-29) mmol/L Anion Gap (12-20) BUN (9-16) mg/dL Creatinine (0.5-1.4) mg/dL Estim Creat Clear Calc Estimated GFR Random Glucose (60-115) mg/dL Lactic Acid (0.5-2.0) mmol/L Calcium (8.4-10.2) mg/dL Magnesium (1.6-2.6) mg/dL Total Bilirubin (0.0-1.0) mg/dL AST (5-31) U/L ALT (0-31) U/L Alkaline Phosphatase (39-117) U/L Troponin I High Sens (<3.5-17.0) ng/L Total Protein (6.5-8.0) g/dL Albumin (3.5-5.0) g/dL Urine Color Yellow Urine Appearance Clear Urine pH 5.5 (5.0-9.0) Ur Specific [place] <= 1.005 (1.005-1.025) Urine Protein Negative (Neg-Trace) mg/dL Urine Glucose (UA) Negative (Negative) mg/dL Urine Ketones Negative (Negative) mg/dL Urine Blood Negative (Negative) Urine Nitrite Negative (Negative) Ur Leukocyte Esterase Negative (Negative) COVID-19 (JING) (Negative) COVID-19 Clin Com Influenza Type A (MIKE) (Negative) Influenza Type B (MIKE) (Negative) Influenza A & B Note S. pyogenes GrpA MIKE (Negative) 04/08/23 Range/Units 08:55 WBC (4.8-10.8) X10*3/uL RBC (4.20-5.50) X10*6/uL Hgb (12.0-16.0) g/dl Hct (37.0-47.0) % MCV (80.0-98.0) fL MCH (27.0-33.0) pg MCHC (31.0-35.0) g/dl RDW (11.0-16.0) % Plt Count (160-400) X10*3/uL MPV (9.4-12.3) fL Immature Gran % (Auto) (0.0-0.4) % Neut % (Auto) (45-73) % Lymph % (Auto) (20-40) % [place] % (Auto) (2-11) % Eos % (Auto) (0-4) % Baso % (Auto) (0-2) % Lymph # (Auto) (1.2-4.9) X10*3/uL [place] # (Auto) (0.1-1.2) X10*3/uL Eos # (Auto) (0.0-0.4) X10*3/uL Baso # (Auto) (0.0-0.2) X10*3/uL Abs Immat Gran (auto) (0.00-0.03) X10*3/uL Absolute Neuts (auto) (2.0-8.3) x10*3/uL Absolute Nucleated RBC (0.0-0.012) X10*3/uL Nucleated RBC % (auto) (0.0-0.2) /100WBC PT (10.0-13.1) SEC INR (0.9-1.1) APTT (26.0-36.4) SEC VBG pH (7.32-7.43) VBG pCO2 mmHg VBG pO2 mmHg VBG HCO3 (22-26) mmol/L VBG O2 Saturation % VBG Base Excess mmol/L Sodium (135-145) mmol/L Potassium (3.3-5.1) mmol/L Chloride (96-108) mmol/L Carbon Dioxide (22-29) mmol/L Anion Gap (12-20) BUN (9-16) mg/dL Creatinine (0.5-1.4) mg/dL Estim Creat Clear Calc Estimated GFR Random Glucose (60-115) mg/dL Lactic Acid (0.5-2.0) mmol/L Calcium (8.4-10.2) mg/dL Magnesium (1.6-2.6) mg/dL Total Bilirubin (0.0-1.0) mg/dL AST (5-31) U/L ALT (0-31) U/L Alkaline Phosphatase (39-117) U/L Troponin I High Sens (<3.5-17.0) ng/L Total Protein (6.5-8.0) g/dL Albumin (3.5-5.0) g/dL Urine Color Urine Appearance Urine pH (5.0-9.0) Ur Specific [place] (1.005-1.025) Urine Protein (Neg-Trace) mg/dL Urine Glucose (UA) (Negative) mg/dL Urine Ketones (Negative) mg/dL Urine Blood (Negative) Urine Nitrite (Negative) Ur Leukocyte Esterase (Negative) COVID-19 (JING) (Negative) COVID-19 Clin Com Influenza Type A (MIKE) (Negative) Influenza Type B (MIKE) (Negative) Influenza A & B Note S. pyogenes GrpA MIKE Negative (Negative) Independent Interpretation I performed an independent interpretation of an: EKG and Plain X-Ray Interpretation: Vent. Rate: 093 BPM ? ? Atrial Rate: 093 BPM P-R Int: 136 ms? QRS Dur: 084 ms QT Int: 338 ms ? ? ? P-R-T Axes: 078 070 049 degrees QTc Int: 420 ms ? Normal sinus rhythm Nonspecific ST abnormality Abnormal ECG When compared with ECG of 18-DEC-2022 14:40, No significant change was found DD/ [id number] My interpretation is in agreement with the radiologist's impression of this imaging study. EXAMINATION: XR CHEST CLINICAL INFORMATION: Cough and shortness of breath COMPARISON: . TECHNIQUE: 2 views of the chest were obtained. FINDINGS: No significant abnormality is noted involving the heart, lungs, mediastinum, bony thorax or soft tissues. XR/XR chest 2V IMPRESSION: Unremarkable examination with no interval change. Dictated By: Jazzmine Lux MD Signed By: Electronically signed by Jazzmine Lux MD 04/08/23 0911 Discharge Plan Discharge Clinical Impression: Upper respiratory infection Patient Disposition: Home, Self-Care Instructions: Upper Respiratory Infection (DC) Additional Instructions: Follow up with your primary care provider. Return to the emergency department immediately if your symptoms worsen or if you develop any dizziness, shortness of breath, difficulty breathing, chest pain, blurry vision, loss of vision, nausea, vomiting, abdominal pain, fever, chills, back pain, or any other complaints. [place]et[place] un seguimiento con arshad proveedor de atenci?n primaria. Regrese al departamento de emergencias de inmediato si ara s?ntomas empeoran o si presenta mareos, falta de aire, dificultad para respirar, dolor de pecho, visi?n borrosa, p?rdida de la visi?n, n?useas, v?mitos, dolor abdominal, fiebre, escalofr?os, dolor de espalda o cualquier otras quejas. Prescriptions: New prednisone 20 mg tablet 20 mg PO DAILY 7 Days Qty: 7 0RF benzonatate 100 mg capsule 100 mg PO BID PRN (Reason: cough) 7 Days Qty: 14 0RF doxycycline hyclate 100 mg tablet 100 mg PO BID 7 Days Qty: 14 0RF albuterol sulfate 90 mcg/actuation HFA aerosol inhaler 1 inh inhalation QID PRN (Reason: shortness of breath or wheezing) Qty: 8.5 0RF No Action hydrocortisone 1 % cream 1 appl topical TID PRN (Reason: rash) Qty: 28.35 0RF ketorolac 10 mg tablet 10 mg PO Q6H PRN (Reason: pain) 5 Days Qty: 20 0RF Rx Instructions: 1. Patient received Toradol in the emergency room. 2. Please instruct the patient to stop all other NSAIDs. Referrals: [facility] [place] [facility] [place] Group] (Call to establish and follow up with a primary care provider. If you already have a primary care provider, please follow up with them. Llame para establecer y hacer un seguimiento con un proveedor de atenci?n primaria. Si ya tiene un proveedor de atenci?n primaria, cayetano un seguimiento con ?l.) [facility] [place] [facility] [Provider Group] (Call to establish and follow up with a primary care provider. If you already have a primary care provider, please follow up with them. Llame para establecer y hacer un seguimiento con un proveedor de atenci?n primaria. Si ya tiene un proveedor de atenci?n primaria, cayetano un seguimiento con ?l.) [facility] [Provider Group] (Call to establish and follow up with a primary care provider. If you already have a primary care provider, please follow up with them. Llame para establecer y hacer un seguimiento con un proveedor de atenci?n primaria. Si ya tiene un proveedor de atenci?n primaria, cayetano un seguimiento con ?l.) [facility] [Physician] - (Call to establish and follow up with a primary care provider. If you already have a primary care provider, please follow up with them. Llame para establecer y hacer un seguimiento con un proveedor de atenci?n primaria. Si ya tiene un proveedor de atenci?n primaria, cayetano un seguimiento con ?l.) Stand Alone Forms: Work/School Release Print Language: Stateless
--- NOTE | 2023-04-08 07:46 | ECG_ITS ---
Test Reason : dyspnea Blood Pressure : / mmHG Vent. Rate : 093 BPM Atrial Rate : 093 BPM P-R Int : 136 ms QRS Dur : 084 ms QT Int : 338 ms P-R-T Axes : 078 070 049 degrees QTc Int : 420 ms Normal sinus rhythm Nonspecific ST abnormality Abnormal ECG When compared with ECG of 18-DEC-2022 14:40, No significant change was found Referred By: Mallika Villarreal Electronically Signed By:TIERA LAI MD
[2023-04-08 08:23] LABS: MANUAL DIFF FLAG NO
[2023-04-08 08:28] LABS: Basophils Absolute Auto 0.1 X10*3/uL (0.0-0.2); Basophils Percent Auto 0.4 % (0-2); Eosinophils Absolute Auto 0.1 X10*3/uL (0.0-0.4); Eosinophils Percent Auto 0.7 % (0-4); Hematocrit 39.5 % (37.0-47.0); Imm Gran Abs Auto 0.04 X10*3/uL (0.00-0.03); Imm Gran Pct Auto 0.3 % (0.0-0.4); Lymphocytes Absolute Auto 1.8 X10*3/uL (1.2-4.9); Mean Corpuscular HGB Conc 32.9 g/dl (31.0-35.0); Mean Corpuscular Hemoglobin 29.4 pg (27.0-33.0); Mean Corpuscular Volume 89.4 fL (80.0-98.0); Mean Platelet Volume 11.2 fL (9.4-12.3); Monocytes Absolute Auto 1.1 X10*3/uL (0.1-1.2); Monocytes Percent Auto 8.3 % (2-11); Neutrophils Absolute Auto 10.6 x10*3/uL (2.0-8.3); Neutrophils Percent Auto 77.3 % (45-73); Platelet Count 283 X10*3/uL (160-400); Red Blood Count 4.42 X10*6/uL (4.20-5.50); Red Cell Distribution Width 13.1 % (11.0-16.0); White Blood Count 13.7 X10*3/uL (4.8-10.8)
[2023-04-08 08:36] LABS: Lactic Acid 1.7 mmol/L (0.5-2.0)
[2023-04-08 08:41] LABS: VBG HCO3 23 mmol/L (22-26); VBG pCO2 34 mmHg; VBG pH 7.44 (7.32-7.43); VBG pO2 75 mmHg
[2023-04-08 08:42] LABS: Appearance Urine Clear; Color Urine Yellow; Glucose Urine UA Negative (Negative); Leukocyte Esterase Urine Negative (Negative); Nitrite Urine Negative (Negative); PH 5.5 (5.0-9.0); Specific Gravity - Urine <= 1.005 (1.005-1.025); Urine Blood Negative (Negative); Urine Ketones Negative (Negative); Urine Protein Negative (Neg-Trace)
[2023-04-08 08:43] LABS: Venous Blood Gas Refer to POC result
[2023-04-08 08:45] LABS: Alanine Aminotransferase 13 U/L (0-31); Albumin Level 4.5 g/dL (3.5-5.0); Alkaline Phosphatase 93 U/L (39-117); Anion Gap 12 (12-20); Aspartate Amino Transferase 17 U/L (5-31); Bilirubin Total 0.3 mg/dL (0.0-1.0); Blood Urea Nitrogen 12 mg/dL (9-16); Calcium 9.7 mg/dL (8.4-10.2); Carbon Dioxide 26 mmol/L (22-29); Chloride 108 mmol/L (96-108); Creatinine Clr Calc Pharmacy 66.3; Estimated Glomerular Filt Rate > 60; Glucose Random 77 mg/dL (60-115); Potassium 4.2 mmol/L (3.3-5.1); Sodium 142 mmol/L (135-145); Total Protein 7.1 g/dL (6.5-8.0)
[2023-04-08 08:47] LABS: Prothrombin Time 11.4 SEC (10.0-13.1)
[2023-04-08 08:52] LABS: Troponin-I High Sensitivity < 2.7 ng/L (<3.5-17.0)
[2023-04-08 08:54] LABS: COVID-19 Test Negative (Negative); IDNOW Serial# 08D9AD1C; IDNOW Serial# BCCEAD1C; Influenza A Negative (Negative); Influenza B2 Negative (Negative)
[2023-04-08] MEDS: methylPREDNISolone Sod Succ 125 MG/2 ML VIAL 60 MG IVPUSH (09:05)
[2023-04-08] MEDS: Benzonatate 100 MG CAPSULE PO (09:05)
[2023-04-08 09:20] VITALS: BP 158/88; PULSE 87; RESP 20; TEMP 37; O2SAT 100
[2023-04-08 09:22] LABS: IDNOW Serial# 08D9AD1C; Strep A Nucleic Acid Negative (Negative)
--- NOTE | 2023-04-08 09:59 | PC.NURSE ---
Alert and oriented. Reviewed discharge instruction with patient and family member. Patient verbalized understanding .
== END 2023-04-08 09:59 | disposition home or self-care (01) ==
PROVIDERS: Physician Assistant Medical; Emergency Provider Emergency Medicine
DX: J06.9 Acute upper respiratory infection, unspecified (principal); M79.10 Myalgia, unspecified site; R05.9 Cough, unspecified; Z20.822 Contact with and (suspected) exposure to COVID-19; Z20.828 Contact with and (suspected) exposure to other viral communicable diseases; Z79.899 Other long term (current) drug therapy
CPT/HCPCS: 71046; 80053; 81003; 82803; 83605; 83735; 84484; 85025; 85610; 85730; 87040; 87502; 87635; 87651; 93005; 96374; 99284; J2930

== ENCOUNTER 2023-07-17 10:42 | Emergency (ER) | payer OTHER, SELFPAY ==
--- NOTE | ~2023-07-17 | XR_ITS ---
EXAMINATION: XR SHOULDER, RIGHT CLINICAL INFORMATION: Shoulder pain COMPARISON: None available. TECHNIQUE: Three views of the right shoulder. FINDINGS: The bones and soft tissues are normal. No fracture. Glenohumeral and acromioclavicular alignment is anatomic with normal joint space. No abnormal soft tissue calcifications. XR/XR shoulder RT min 2V IMPRESSION: Normal right shoulder.
[2023-07-17 10:54] VITALS: BP 191/104; PULSE 91; RESP 16; TEMP 36.5; O2SAT 100; BMI 22.6
--- NOTE | 2023-07-17 10:54 | ED_ITS ---
HPI - General Adult General Chief complaint: Extremity Injury, Upper Stated complaint: r shoulder pain Time Seen by Provider: 07/17/23 13:28 Source: patient Mode of arrival: ambulatory Limitations: no limitations History of Present Illness HPI narrative: 43-year-old female presents to the ER for evaluation of nontraumatic right shoulder pain for the last 1 week. He states the pain started in her neck when she woke up 1 day and has since radiated to her right shoulder. It radiates down the back of the right arm at times and is described as a lightening bolt of pain. It is worse with movement. She denies any falls or trauma. No headache. No longer having any neck pain. She has no weakness, numbness, tingling in the distal arm. She has been taking Tylenol with minimal relief. 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 MD complaint: right shoulder pain Onset (ago): week(s) (1) Location: right and upper extremity Radiation: distal Severity: moderate Quality: other ( shooting ) Pain Consistency: constant Relieving factors: rest Exacerbating factors: movement Associated symptoms: denies other symptoms Treatments prior to arrival: none Related Data Previous Rx's Medication Instructions Recorded hydrocortisone 1 % topical cream 1 appl topical TID PRN rash #28.35 10/16/22 grams ketorolac 10 mg tablet 10 mg PO Q6H PRN pain 5 days #20 12/18/22 tabs albuterol sulfate 90 mcg/actuation 1 inh inhalation QID PRN shortness 04/08/23 aerosol inhaler of breath or wheezing #8.5 grams benzonatate 100 mg capsule 100 mg PO BID PRN cough 7 days #14 04/08/23 caps doxycycline hyclate 100 mg tablet 100 mg PO BID 7 days #14 tabs 04/08/23 prednisone 20 mg tablet 20 mg PO DAILY 7 days #7 tabs 04/08/23 cyclobenzaprine 10 mg tablet 10 mg PO TID PRN muscle spasm #14 07/17/23 tabs prednisone 20 mg tablet 40 mg (2 x 20 mg) PO DAILY #10 tabs 07/17/23 Allergies Allergy/AdvReac Type Severity Reaction Status Date / Time acetaminophen [From Percocet] Allergy Rash Verified 12/18/22 14:37 levofloxacin [From Levaquin] Allergy Facial Verified 12/18/22 14:37 Swelling oxycodone [From Percocet] Allergy Rash Verified 12/18/22 14:37 Review of Systems Review of Systems: Yes all other systems are reviewed and are negative [facility] Social History Social History Alcohol intake: former Advance Directives: No Physical Exam ED Vital Signs: Vital Signs - 24 hr 07/17/23 10:54 07/17/23 15:05 Temperature 97.7 F Pulse Rate 91 85 Respiratory Rate 16 16 Blood Pressure 191/104 H 151/97 H Pulse Oximetry 100 100 Oxygen Delivery Method Room Air Room Air BMI result Body Mass Index 22.6 Appearance: Alert. Oriented X3. No acute distress. HEENT: normal inspection Neck: normal inspection, no midline tenderness, supple, normal ROM CVS: Normal heart rate and rhythm. Pulses normal. Respiratory: No respiratory distress. Skin: Skin warm and dry. Normal skin color. Normal skin turgor. No rashes. Extremities: inspection of the bilateral upper extremities. Pre shoulder with some anterior tenderness and pain with abduction past 90 degrees. Normal range of motion of the right elbow. Nontender medial and lateral epicondyle. 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 Neurovascularly intact distally. No scapular tenderness. Negative empty can test. Neuro: Oriented X 3. No motor deficit. No sensory deficit. Course Course Course Narrative: This is a rapid medical exam: Additional HPI, ROS, PE not included below will be deferred to primary provider. Patient is a 43-year-old left hand dominant female presenting to the emergency department with complaint of right shoulder pain extending down right arm for one week. Used lidocaine patches without relief. Denies decreased ROM. Denies numbness or tingling. Denies fall or other trauma. Plan: x-ray Medical Decision Making Medical Decision Making MDM Narrative: 43-year-old left-handed female presenting to the ER for evaluation of nontraumatic right shoulder pain that was preceded by right-sided neck pain. Pain is described as shooting sensation. Exam and clinical presentation are most consistent with radiculopathy. She has no trauma. No need for emergent CT scan or x-rays today. Will treat conservatively with anti-inflammatories and muscle relaxers. Will have her follow-up with her primary care doctor for further evaluation and treatment. Comfortable discharge home with supportive care. Return precautions discussed. Stable for DC Differential Diagnosis Differential Diagnoses: The differential diagnosis associated with the presentation includes Cervical radiculopathy, nerve impingement, shoulder strain, shoulder sprain, bursitis, tendonitis, rotator cuff injury Independent Interpretation I performed an independent interpretation of an: Plain X-Ray Interpretation: no acute fx or dislocation, agree w/ radiology read Radiology Impression Discussion of test interpretation with radiology: I have reviewed the radiologist's reading. Radiologist Impression: EXAMINATION: XR SHOULDER, RIGHT CLINICAL INFORMATION: Shoulder pain COMPARISON: None available. TECHNIQUE: Three views of the right shoulder. FINDINGS: The bones and soft tissues are normal. No fracture. Glenohumeral and acromioclavicular alignment is anatomic with normal joint space. No abnormal soft tissue calcifications. XR/XR shoulder RT min 2V IMPRESSION: Normal right shoulder. External Record Review External record reviewed: Outpatient record, Prior outpatient labs and Prior outpatient radiology Prescription Management I considered prescription management with: Pain Medication Critical Care Time Critical Care Time Critical Care Time: No Discharge Plan Discharge Clinical Impression: Cervical radiculopathy Patient Disposition: Home, Self-Care Instructions: Cervical Radiculopathy (ED) Additional Instructions: Your x-ray today was normal. Use ice several times per day for 20 minutes at a time for the next 48 hours and then change to heat. Take medications as prescribed to help with pain and discomfort. Follow up with your Primary Care Doctor this week. If you develop new or worsening symptoms call 911 or come back to the ER for further evaluation. Tu radiograf?a de hoy fue normal. Use hielo varias veces al d?a huan 20 minutos a la vez huan las siguientes 48 horas y luego c?mbielo a calor. [place] los medicamentos recetados para ayudar con el dolor y el malestar. [place] un seguimiento con arshad m?dico de atenci?n primaria esta semana. Si desarrolla s?ntomas nuevos o que empeoran, llame al 911 o regrese a la heidy de emergencias para darien evaluaci?n adicional. Prescriptions: New prednisone 20 mg tablet 40 mg PO DAILY Qty: 10 0RF cyclobenzaprine 10 mg tablet 10 mg PO TID PRN (Reason: muscle spasm) Qty: 14 0RF No Action hydrocortisone 1 % cream 1 appl topical TID PRN (Reason: rash) Qty: 28.35 0RF ketorolac 10 mg tablet 10 mg PO Q6H PRN (Reason: pain) 5 Days Qty: 20 0RF Rx Instructions: 1. Patient received Toradol in the emergency room. 2. Please instruct the patient to stop all other NSAIDs. prednisone 20 mg tablet 20 mg PO DAILY 7 Days Qty: 7 0RF benzonatate 100 mg capsule 100 mg PO BID PRN (Reason: cough) 7 Days Qty: 14 0RF doxycycline hyclate 100 mg tablet 100 mg PO BID 7 Days Qty: 14 0RF albuterol sulfate 90 mcg/actuation HFA aerosol inhaler 1 inh inhalation QID PRN (Reason: shortness of breath or wheezing) Qty: 8.5 0RF Stand Alone Forms: Work/School Release
[2023-07-17 15:05] VITALS: BP 151/97; PULSE 85; RESP 16; O2SAT 100
== END 2023-07-17 15:36 | disposition home or self-care (01) ==
PROVIDERS: Emergency Provider Emergency Medicine
DX: M54.12 Radiculopathy, cervical region (principal); M25.511 Pain in right shoulder
CPT/HCPCS: 73030; 99283; 99284

== ENCOUNTER 2024-01-09 18:15 | Emergency (ER) | payer OTHER, SELFPAY | END 2024-01-09 19:42 | disposition left against medical advice (07) | PROVIDERS: Emergency Provider Emergency Medicine; PCP Internal Medicine | DX: Z53.21 Procedure and treatment not carried out due to patient leaving prior to being seen by health care provider (principal); R42 Dizziness and giddiness; M79.605 Pain in left leg ==

== ENCOUNTER 2024-03-27 23:46 | Emergency (ER) | payer OTHER, SELFPAY ==
--- NOTE | 2024-03-27 | ECG_ITS ---
Test Reason : MIGRAINE Blood Pressure : / mmHG Vent. Rate : 089 BPM Atrial Rate : 089 BPM P-R Int : 136 ms QRS Dur : 084 ms QT Int : 342 ms P-R-T Axes : 074 063 056 degrees QTc Int : 416 ms Normal sinus rhythm Nonspecific ST and T wave abnormality Borderline ECG No significant changes when compared with the previous EKG of 08 april 2023 Referred By: Generic ED Physician Electronically Signed By:DUNIA [place]
--- NOTE | ~2024-03-27 | CT_ITS ---
EXAMINATION: CT HEAD WITHOUT CONTRAST CLINICAL INFORMATION: Headache COMPARISON: Previous head CT from 2022 TECHNIQUE: Contiguous axial imaging was performed from the skull base to vertex without intravenous administration of contrast. This CT examination was performed using dose optimization techniques as appropriate, variously including the following: *Automated exposure control *Adjustment of mA and/or kV according to patient size (this includes techniques or standardized protocols for targeted exams where dose is matched to indication/reason for exam; i.e. extremities or head) *Use of iterative reconstruction technique DLP: 633 mGy-cm FINDINGS: There is no evidence for an extra-axial collection. There is no evidence for intra-or extra-axial hemorrhage. The ventricles and extra-axial CSF spaces are appropriate. Normal variant cavum septum lucidum again noted. Carrington-white matter differentiation is normal. No mass, mass effect or infarct is seen. Review of bone windows is normal. No skull fracture. Visualized paranasal sinuses, mastoid air cells and middle ears are clear. CT/CT head/brain wo IV con IMPRESSION: Unremarkable exam.
[2024-03-27 23:49] VITALS: BP 200/103; PULSE 108; RESP 20; TEMP 36.6; O2SAT 99; BMI 24.8
[2024-03-28 00:07] LABS: MANUAL DIFF FLAG NO
[2024-03-28 00:09] LABS: Basophils Absolute Auto 0.1 X10*3/uL (0.0-0.2); Basophils Percent Auto 0.3 % (0-2); Eosinophils Absolute Auto 0.1 X10*3/uL (0.0-0.4); Eosinophils Percent Auto 0.5 % (0-4); Hematocrit 41.3 % (37.0-47.0); Hemoglobin 13.8 g/dl (12.0-16.0); Imm Gran Abs Auto 0.03 X10*3/uL (0.00-0.03); Imm Gran Pct Auto 0.2 % (0.0-0.4); Lymphocytes Absolute Auto 3.9 X10*3/uL (1.2-4.9); Lymphocytes Percent Auto 26.7 % (20-40); Mean Corpuscular HGB Conc 33.4 g/dl (31.0-35.0); Mean Corpuscular Hemoglobin 30.5 pg (27.0-33.0); Mean Corpuscular Volume 91.2 fL (80.0-98.0); Mean Platelet Volume 11.1 fL (9.4-12.3); Monocytes Absolute Auto 1.1 X10*3/uL (0.1-1.2); Monocytes Percent Auto 7.8 % (2-11); Neutrophils Absolute Auto 9.4 x10*3/uL (2.0-8.3); Neutrophils Percent Auto 64.5 % (45-73); Platelet Count 355 X10*3/uL (160-400); Red Blood Count 4.53 X10*6/uL (4.20-5.50); Red Cell Distribution Width 13.1 % (11.0-16.0); White Blood Count 14.7 X10*3/uL (4.8-10.8)
[2024-03-28 00:22] LABS: Alanine Aminotransferase 11 U/L (0-31); Albumin Level 4.5 g/dL (3.5-5.0); Alkaline Phosphatase 125 U/L (39-117); Anion Gap 12 (12-20); Aspartate Amino Transferase 16 U/L (5-31); Bilirubin Total 0.1 mg/dL (0.0-1.0); Blood Urea Nitrogen 14 mg/dL (9-16); Calcium 9.6 mg/dL (8.4-10.2); Carbon Dioxide 26 mmol/L (22-29); Chloride 106 mmol/L (96-108); Creatinine Clr Calc Pharmacy 63.4; Estimated Glomerular Filt Rate > 60; Glucose Random 106 mg/dL (60-115); Potassium 3.8 mmol/L (3.3-5.1); Sodium 140 mmol/L (135-145); Total Protein 7.4 g/dL (6.5-8.0)
[2024-03-28 00:32] LABS: Troponin-I High Sensitivity < 2.7 ng/L (<3.5-17.0)
[2024-03-28 04:20] VITALS: BP 175/107; PULSE 77; RESP 18; TEMP 36.6; O2SAT 99
[2024-03-28 06:19] VITALS: BP 153/96; PULSE 69; RESP 16; TEMP 36.4; O2SAT 98
--- NOTE | 2024-03-28 07:34 | ED.HA ---
HPI - Headache General Chief Complaint: Headache Stated Complaint: migraine Time Seen by Provider: 03/28/24 07:22 Source: patient Mode of arrival: ambulatory Limitations: no limitations History of Present Illness ED Provider: DR. Veras HPI Narrative: 43-year-old female history of hypertension on lisinopril the patient is not compliant with presented today with headache that started in the occipital area radiates down to the forehead area, patient is complaining of a point of tenderness to touch to the left parietal area, no trauma, no head injury. Patient stated when her blood pressure is high she usually get headaches. No photophobia, no neck stiffness, no nausea, no vomiting, no fever, no chills. Related Data Previous Rx's ?Medication ?Instructions ?Recorded hydrocortisone 1 % topical cream 1 appl topical TID PRN rash #28.35 10/16/22 grams ketorolac 10 mg tablet 10 mg PO Q6H PRN pain 5 days #20 12/18/22 tabs albuterol sulfate 90 mcg/actuation 1 inh inhalation QID PRN shortness 04/08/23 aerosol inhaler of breath or wheezing #8.5 grams benzonatate 100 mg capsule 100 mg PO BID PRN cough 7 days #14 04/08/23 caps doxycycline hyclate 100 mg tablet 100 mg PO BID 7 days #14 tabs 04/08/23 prednisone 20 mg tablet 20 mg PO DAILY 7 days #7 tabs 04/08/23 cyclobenzaprine 10 mg tablet 10 mg PO TID PRN muscle spasm #14 07/17/23 tabs prednisone 20 mg tablet 40 mg (2 x 20 mg) PO DAILY #10 tabs 07/17/23 Allergies Allergy/AdvReac Type Severity Reaction Status Date / Time acetaminophen [From Percocet] Allergy Rash Verified 03/27/24 23:51 levofloxacin [From Levaquin] Allergy Facial Verified 03/27/24 23:51 Swelling oxycodone [From Percocet] Allergy Rash Verified 03/27/24 23:51 Review of Systems Review of Systems: All other systems are reviewed and are negative Constitutional: Reports as per HPI and Reports no additional constitutional complaints Eyes: Reports as per HPI and Reports no additional eye complaints Reports system reviewed and no additional complaints, except as documented Cardiovascular: Reports as per HPI and Reports no additional cardiovascular complaints Respiratory: Reports as per HPI and Reports no additional respiratory complaints Gastrointestinal: Reports as per HPI and Reports no additional gastrointestinal complaints Genitourinary: Reports no additional female genitourinary complaints Musculoskeletal: Reports no additional musculoskeletal complaints Skin/Breast: Reports system reviewed and no additional complaints, except as docu Psychiatric: Reports no additional psychiatric complaints Endocrine: Reports no additional endocrine complaints Hematologic/Lymphatic: Reports no additional hematologic/lymphatic complaints Allergic/Immunologic: Reports no additional allergic/immunologic complaints Reports system reviewed and no additional complaints, except as documented and Reports Abnormal speech present [facility] Social History Social History Alcohol intake: never Use of substances other than those prescribed or required for medical reasons: No Advance Directives: No Advance Directives Information Provided: No Do you have a plan to hurt others: No Plan Physical Exam Vital Signs: Vital Signs: Last Vital Signs Temp 97.5 F 03/28/24 06:19 Pulse 69 03/28/24 06:19 Resp 16 03/28/24 06:19 BP 153/96 H 03/28/24 06:19 Pulse Ox 98 03/28/24 06:19 O2 Del Method Room Air 03/28/24 06:19 BMI result Body Mass Index 24.8 Vital signs have been reviewed and appear to be correct. Blood pressure elevated. Heart rate normal. Respiratory rate normal. Temperature normal. Oxygen saturation normal. Appearance: Alert. Oriented X3. No acute distress. Head: Normal external exam. Normocephalic. Atraumatic. No Davidson signs noted. No raccoon eyes noted Eyes: PERRLA. EOMI. Conjunctiva and sclera normal. Eyelids normal. ENT: TM's Normal. Pharynx normal. Uvula midline. Moist mucous membranes. No trismus noted. No drooling noted. No muffled voice noted. Neck: Normal inspection. Neck supple. FROM. No adenopathy. Thyroid Normal. No meningeal signs. No neck mass noted. CVS: Normal heart rate and rhythm. Heart sound normal. No murmurs noted. Pulses normal throughout. Respiratory: No respiratory distress. Painless inspiration. Breath sounds normal. No wheezes/rales/rhonchi noted. Chest nontender. No accessory muscle usage noted or decreased air movement noted. Abdomen: Soft and nontender. Bowel sounds normal in all 4 quadrants. No distention noted. No organomegaly noted. No visible injury noted. Back: No CVA tenderness. Full range of motion noted. Skin: Skin warm and dry. Normal skin color. Normal skin turgor. No rashes/lesions/lacerations noted. Extremities: No lower extremity edema. Extremities exhibit normal range of motion. Extremities nontender. Neuro: Oriented X 3. Cranial nerve exam: II-XII are grossly intact No motor deficit. No sensory deficit. Reflexes normal. Course Reevaluation(s) Reevaluation #1: Feels better with improvement of the headache, normal neuro exam, normal head CT. Time: 10:30 Medical Decision Making Differential Diagnosis Differential Diagnoses: The differential diagnosis associated with the presentation includes ( Intracranial bleed, hypertensive bleed, scalp abscess, severe anemia, electrolyte derangement, migraines, tension headache.) Admission/Observation Consideration of admission/observation: Escalation of care including admission/observation considered Lab Data MDM Lab Attestation statement: I reviewed the patient's lab results. 03/28/24 00:02 03/28/24 00:02 Labs: Lab Results 03/28/24 Range/Units 00:02 WBC 14.7 H (4.8-10.8) X10*3/uL RBC 4.53 (4.20-5.50) X10*6/uL Hgb 13.8 (12.0-16.0) g/dl Hct 41.3 (37.0-47.0) % MCV 91.2 (80.0-98.0) fL MCH 30.5 (27.0-33.0) pg MCHC 33.4 (31.0-35.0) g/dl RDW 13.1 (11.0-16.0) % Plt Count 355 D (160-400) X10*3/uL MPV 11.1 (9.4-12.3) fL Immature Gran % (Auto) 0.2 (0.0-0.4) % Neut % (Auto) 64.5 (45-73) % Lymph % (Auto) 26.7 (20-40) % [place] % (Auto) 7.8 (2-11) % Eos % (Auto) 0.5 (0-4) % Baso % (Auto) 0.3 (0-2) % Lymph # (Auto) 3.9 (1.2-4.9) X10*3/uL [place] # (Auto) 1.1 (0.1-1.2) X10*3/uL Eos # (Auto) 0.1 (0.0-0.4) X10*3/uL Baso # (Auto) 0.1 (0.0-0.2) X10*3/uL Abs Immat Gran (auto) 0.03 (0.00-0.03) X10*3/uL Absolute Neuts (auto) 9.4 H (2.0-8.3) x10*3/uL Absolute Nucleated RBC 0.000 (0.0-0.012) X10*3/uL Nucleated RBC % (auto) 0.0 (0.0-0.2) /100WBC Sodium 140 (135-145) mmol/L Potassium 3.8 (3.3-5.1) mmol/L Chloride 106 (96-108) mmol/L Carbon Dioxide 26 (22-29) mmol/L Anion Gap 12 (12-20) BUN 14 (9-16) mg/dL Creatinine 0.87 (0.5-1.4) mg/dL Estim Creat Clear Calc 63.4 Estimated GFR > 60 Random Glucose 106 (60-115) mg/dL Calcium 9.6 (8.4-10.2) mg/dL Total Bilirubin 0.1 (0.0-1.0) mg/dL AST 16 (5-31) U/L ALT 11 (0-31) U/L Alkaline Phosphatase 125 H (39-117) U/L Troponin I High Sens < 2.7 (<3.5-17.0) ng/L Total Protein 7.4 (6.5-8.0) g/dL Albumin 4.5 (3.5-5.0) g/dL Independent Interpretation I performed an independent interpretation of an: CT Scan ( Head CT: No acute intracranial pathology.) Radiology Impression Discussion of test interpretation with radiology: I have reviewed the radiologist's reading. Discharge Plan Discharge Clinical Impression: Headache Patient Disposition: Home, Self-Care Instructions: Acute Headache (ED) Prescriptions: No Action hydrocortisone 1 % cream 1 appl topical TID PRN (Reason: rash) Qty: 28.35 0RF ketorolac 10 mg tablet 10 mg PO Q6H PRN (Reason: pain) 5 Days Qty: 20 0RF Rx Instructions: 1. Patient received Toradol in the emergency room. 2. Please instruct the patient to stop all other NSAIDs. prednisone 20 mg tablet 20 mg PO DAILY 7 Days Qty: 7 0RF benzonatate 100 mg capsule 100 mg PO BID PRN (Reason: cough) 7 Days Qty: 14 0RF doxycycline hyclate 100 mg tablet 100 mg PO BID 7 Days Qty: 14 0RF albuterol sulfate 90 mcg/actuation HFA aerosol inhaler 1 inh inhalation QID PRN (Reason: shortness of breath or wheezing) Qty: 8.5 0RF prednisone 20 mg tablet 40 mg PO DAILY Qty: 10 0RF cyclobenzaprine 10 mg tablet 10 mg PO TID PRN (Reason: muscle spasm) Qty: 14 0RF Print Language: [place]
[2024-03-28] MEDS: diphenhydrAMINE HCL 50 MG/ML VIAL IVPUSH (07:59)
[2024-03-28] MEDS: ondansetron HCL 4 MG/2 ML VIAL IVPUSH (07:59)
[2024-03-28] MEDS: 0.9 % Sodium Chloride 1,000 ML 999 ML IV (07:59)
[2024-03-28 08:02] VITALS: BP 155/85; PULSE 68; RESP 14; TEMP 36.6; O2SAT 98
[2024-03-28 09:13] VITALS: BP 165/91; PULSE 64; RESP 16; TEMP 36.6; O2SAT 99
== END 2024-03-28 09:18 | disposition home or self-care (01) ==
PROVIDERS: Emergency Provider Emergency Medicine
DX: R51.9 Headache, unspecified (principal)
CPT/HCPCS: 36415; 70450; 80053; 84484; 85025; 93005; 96361; 96374; 96375; 99284; 99285; J1200; J2405

== ENCOUNTER → 2024-03-27 | Outpatient (BNV) | payer OTHER, SELFPAY | PROVIDERS: Emergency Provider Emergency Medicine; Visit Provider Internal Medicine | DX: R94.31 Abnormal electrocardiogram [ECG] [EKG] (principal) | CPT/HCPCS: 93010 ==

== ENCOUNTER 2024-07-25 22:55 | Emergency (ER) | payer OTHER, SELFPAY ==
--- NOTE | ~2024-07-25 | CT_ITS ---
EXAMINATION: CT ABDOMEN AND PELVIS WITHOUT CONTRAST CLINICAL INFORMATION: Left flank pain. COMPARISON: None available. TECHNIQUE: Multidetector volumetric imaging was performed from the superior aspect of the liver through the pubic symphysis. Sagittal and coronal reformatted images were obtained on the technologist's workstation. This CT examination was performed using dose optimization techniques as appropriate, variously including the following: *Automated exposure control *Adjustment of mA and/or kV according to patient size (this includes techniques or standardized protocols for targeted exams where dose is matched to indication/reason for exam; i.e. extremities or head) *Use of iterative reconstruction technique DLP: 346 mGy-cm FINDINGS: LUNG BASES: The visualized lung bases are unremarkable. LIVER, GALLBLADDER, AND BILIARY TREE: The liver is normal in size, shape, and attenuation. No focal hepatic lesion or biliary ductal dilatation is present. The gallbladder is unremarkable with no evidence of radiopaque gallstones, gallbladder wall thickening, or obvious pericholecystic inflammatory changes. PANCREAS: Unremarkable. SPLEEN: Unremarkable. ADRENAL GLANDS: Unremarkable. KIDNEYS AND URETERS: The kidneys are normal in size, shape, and attenuation. There are scattered bilateral 2 mm nonobstructing renal calculi. There is no hydronephrosis. BLADDER: Unremarkable. GASTROINTESTINAL TRACT: The small and large bowel are unremarkable. The appendix is not seen. ABDOMINAL WALL: No significant hernia is appreciated. LYMPH NODES: Normal. VASCULAR: Unremarkable. PELVIC VISCERA: Unremarkable. OSSEOUS STRUCTURES: Unremarkable. CT/CT abdomen pelvis wo IV con IMPRESSION: 1. Bilateral 2 mm nonobstructing renal calculi. No hydronephrosis. 2. No acute abnormalities in the abdomen or pelvis to explain the patient's symptoms. Fleischner guidelines were followed. Electronically signed by: Naseem Hoosk MD 07/26/2024 01:55 AM EDT
[2024-07-25 23:04] VITALS: BP 198/117; PULSE 113; RESP 18; TEMP 36.6; O2SAT 99; BMI 23.0
--- NOTE | 2024-07-25 23:05 | ED.ABDPAIN ---
HPI - Abdominal Pain General Chief Complaint: Urogenital-Female Stated Complaint: back pain Time Seen by Provider: 07/25/24 23:04 Source: patient and old records reviewed Mode of arrival: ambulatory Limitations: no limitations History of Present Illness ED Provider: MIRZA HPI narrative: 44 yo female with PMH of HTN, asthma, kidney stones here with c/o L flank pain x 3 days, foul smelling urine, subjective fevers, mild nausea. She thinks she has a kidney stone. Able to eat and drink today. Denies trauma to the back. She did not take anything PSYCH TECH. She denies numbness or weakness. Pain wraps around the L flank to the abdomen. MD elicited complaint: abdominal pain and flank pain Pertinent past history: kidney stones Onset (ago): day(s) (3) Pain Consistency: constant Location: L flank Severity: moderate Quality: aching Radiation: LLQ Migration to: no migration Exacerbating factors: nothing Relieving factors: nothing Context: history of similar episodes Associated symptoms: nausea, fever and dysuria Related Data Previous Rx's ?Medication ?Instructions ?Recorded hydrocortisone 1 % topical cream 1 appl topical TID PRN rash #28.35 10/16/22 grams ketorolac 10 mg tablet 10 mg PO Q6H PRN pain 5 days #20 12/18/22 tabs albuterol sulfate 90 mcg/actuation 1 inh inhalation QID PRN shortness 04/08/23 aerosol inhaler of breath or wheezing #8.5 grams benzonatate 100 mg capsule 100 mg PO BID PRN cough 7 days #14 04/08/23 caps doxycycline hyclate 100 mg tablet 100 mg PO BID 7 days #14 tabs 04/08/23 prednisone 20 mg tablet 20 mg PO DAILY 7 days #7 tabs 04/08/23 cyclobenzaprine 10 mg tablet 10 mg PO TID PRN muscle spasm #14 07/17/23 tabs prednisone 20 mg tablet 40 mg (2 x 20 mg) PO DAILY #10 tabs 07/17/23 cefuroxime axetil 250 mg tablet 250 mg PO BID 10 days #20 tabs 07/26/24 cyclobenzaprine 10 mg tablet 10 mg PO TID PRN muscle spasm #20 07/26/24 tabs ibuprofen 600 mg tablet 600 mg PO Q6H PRN pain #30 tabs 07/26/24 ondansetron 4 mg disintegrating 4 mg PO Q8H PRN nausea and 07/26/24 tablet vomiting #20 tabs Allergies Allergy/AdvReac Type Severity Reaction Status Date / Time levofloxacin [From Levaquin] Allergy Facial Verified 07/25/24 23:05 Swelling oxycodone [From Percocet] Allergy Rash Verified 07/25/24 23:05 Review of Systems Review of Systems Constitutional : No Weight loss, pos Fever, No Chills ENT/Mouth : No sore throat, No Rhinorrhea Eyes: No Swelling, No Redness Cardiovascular : No Chest Pain, No SOB, NoEdema Respiratory : No Cough, No Sputum, No Wheezing Gastrointestinal : Positive Nausea, no Vomiting, no Diarrhea, positive abdominal Pain, No Hematochezia, No Melena Genitourinary : pos Dysuria, No Urinary Frequency, No Hematuria, No Urgency Musculoskeletal : No joint pain, No Myalgias, No Joint Swelling Skin : No Skin Lesions, No rash Neuro : No Weakness, No Numbness, No Dizziness, No Headache Psych : No Anxiety/Panic, No Depression Heme/Lymph: No Bruising, No Lymphadenopathy Endocrine : No Polyuria, No Polydipsia All other systems reviewed and are negative. [facility] Past Medical History Attestation statement: The following information was validated with the patient. Source: old records reviewed Medical History Kidney stone HTN (hypertension) Asthma Social History Social History (Updated 07/25/24 @ 23:09 by Tanesha Piper DO) Alcohol intake: never Patient Tobacco Use Status: Tobacco use Unknown Advance Directives: No Advance Directives Information Provided: Yes Physical Exam ED Vital Signs: Vital Signs - 24 hr 07/25/24 23:04 Temperature 97.8 F Pulse Rate 113 H Respiratory Rate 18 Blood Pressure 198/117 H Pulse Oximetry 99 Oxygen Delivery Method Room Air BMI result Body Mass Index 23.0 Appearance: Alert. Oriented X3. No acute distress. Eyes: Pupils equal, round and reactive to light. ENT: Pharynx normal. Neck: Normal inspection. Neck supple. CVS: Normal heart rate and rhythm. Pulses normal. Respiratory: No respiratory distress. Breath sounds normal. Abdomen: Soft and mild LLQ ttp no rebound Skin: Skin warm and dry. Normal skin color. Normal skin turgor. Extremities: No lower extremity edema. Neuro: Oriented X 3. No motor deficit. No sensory deficit. Course Course Course Narrative: WBC count is chronic Medical Decision Making Medical Decision Making [facility] Narrative: 44 yo female with PMH of HTN, asthma, kidney stones here with c/o L flank pain, dysuria, nausea at this time will obtain labs, UA and CT scan for renal colic - could be UTI, renal colic, diverticulitis, MSK pain. No b/b incontinence/saddle anesthesia. Differential Diagnosis Differential Diagnoses: The differential diagnosis associated with the presentation includes UTI, renal colic, diverticulitis, MSK pain Admission/Observation Consideration of admission/observation: Escalation of care including admission/observation considered tolerating PO not toxic, no stone seen stable for DC Lab Data [facility] Lab Attestation statement: I reviewed the patient's lab results. 07/25/24 23:18 07/25/24 23:18 Labs: Lab Results 07/25/24 Range/Units 23:18 WBC 16.0 H (4.8-10.8) X10*3/uL RBC 4.29 (4.20-5.50) X10*6/uL Hgb 13.0 (12.0-16.0) g/dl Hct 38.9 (37.0-47.0) % MCV 90.7 (80.0-98.0) fL MCH 30.3 (27.0-33.0) pg MCHC 33.4 (31.0-35.0) g/dl RDW 13.3 (11.0-16.0) % Plt Count 369 (160-400) X10*3/uL MPV 11.0 (9.4-12.3) fL Immature Gran % (Auto) 0.5 H (0.0-0.4) % Neut % (Auto) 73.1 H (45-73) % Lymph % (Auto) 19.8 L (20-40) % [place] % (Auto) 5.8 (2-11) % Eos % (Auto) 0.4 (0-4) % Baso % (Auto) 0.4 (0-2) % Lymph # (Auto) 3.2 (1.2-4.9) X10*3/uL [place] # (Auto) 0.9 (0.1-1.2) X10*3/uL Eos # (Auto) 0.1 (0.0-0.4) X10*3/uL Baso # (Auto) 0.1 (0.0-0.2) X10*3/uL Abs Immat Gran (auto) 0.08 H (0.00-0.03) X10*3/uL Absolute Neuts (auto) 11.7 H (2.0-8.3) x10*3/uL Absolute Nucleated RBC 0.000 (0.0-0.012) X10*3/uL Nucleated RBC % (auto) 0.0 (0.0-0.2) /100WBC Sodium 140 (135-145) mmol/L Potassium 3.8 (3.3-5.1) mmol/L Chloride 105 (96-108) mmol/L Carbon Dioxide 25 (22-29) mmol/L Anion Gap 14 (12-20) BUN 15 (9-16) mg/dL Creatinine 0.84 (0.5-1.4) mg/dL Estim Creat Clear Calc 58.2 Estimated GFR > 60 Random Glucose 147 H (60-115) mg/dL Calcium 9.7 (8.4-10.2) mg/dL Magnesium 2.0 (1.6-2.6) mg/dL Total Bilirubin 0.2 (0.0-1.0) mg/dL Direct Bilirubin < 0.2 (0.0-0.5) mg/dL AST 20 (5-31) U/L ALT 19 (0-31) U/L Alkaline Phosphatase 110 (39-117) U/L Total Protein 7.1 (6.5-8.0) g/dL Albumin 4.4 (3.5-5.0) g/dL Lipase 20 (8-78) U/L Beta HCG, Quant < 2 mIU/mL Urine Color Yellow Urine Appearance Clear Urine pH 5.5 (5.0-9.0) Ur Specific [place] 1.020 (1.005-1.025) Urine Protein Negative (Neg-Trace) mg/dL Urine Glucose (UA) Negative (Negative) mg/dL Urine Ketones Negative (Negative) mg/dL Urine Blood Small (1+) H (Negative) Urine Nitrite Negative (Negative) Ur Leukocyte Esterase Small (1+) H (Negative) Urine RBC 3-5 H (0-2) /HPF Urine WBC 11-20 H (0-5) /HPF Ur Squamous Epith Cells 6-10 (0-2) /HPF Urine Bacteria None Seen (None Seen) Hyaline Casts 0-2 (0-2) /LPF Independent Interpretation I performed an independent interpretation of an: CT Scan (no obstructing stone) Radiology Impression Discussion of test interpretation with radiology: I have reviewed the radiologist's reading. External Record Review External record reviewed: Office record Prescription Management I considered prescription management with: Pain Medication, Antibiotic and Other Discharge Plan Discharge Clinical Impression: Left flank pain Urinary tract infection Qualifiers: Urinary tract infection type: acute cystitis Hematuria presence: without hematuria Qualified Code(s): N30.00 - Acute cystitis without hematuria Patient Disposition: Home, Self-Care Instructions: Urinary Tract Infection in Women (ED), Flank Pain (ED) Additional Instructions: return for any worsening symptoms such as fevers vomiting unable to eat or drink stay hydrated and rest CT/CT abdomen pelvis wo IV con IMPRESSION: 1. Bilateral 2 mm nonobstructing renal calculi. No hydronephrosis. 2. No acute abnormalities in the abdomen or pelvis to explain the patient's symptoms. On a cephalosporin?antibiotic, softer bowel movements are to be expected. Call your provider if you move your bowels more than 4 times a day, your bowel movements are almost all liquid, or you get a rash.?? Prescriptions: New cyclobenzaprine 10 mg tablet 10 mg PO TID PRN (Reason: muscle spasm) Qty: 20 0RF cefuroxime axetil 250 mg tablet 250 mg PO BID 10 Days Qty: 20 0RF ibuprofen 600 mg tablet 600 mg PO Q6H PRN (Reason: pain) Qty: 30 0RF ondansetron 4 mg tablet,disintegrating 4 mg PO Q8H PRN (Reason: nausea and vomiting) Qty: 20 0RF No Action hydrocortisone 1 % cream 1 appl topical TID PRN (Reason: rash) Qty: 28.35 0RF ketorolac 10 mg tablet 10 mg PO Q6H PRN (Reason: pain) 5 Days Qty: 20 0RF Rx Instructions: 1. Patient received Toradol in the emergency room. 2. Please instruct the patient to stop all other NSAIDs. prednisone 20 mg tablet 20 mg PO DAILY 7 Days Qty: 7 0RF benzonatate 100 mg capsule 100 mg PO BID PRN (Reason: cough) 7 Days Qty: 14 0RF doxycycline hyclate 100 mg tablet 100 mg PO BID 7 Days Qty: 14 0RF albuterol sulfate 90 mcg/actuation HFA aerosol inhaler 1 inh inhalation QID PRN (Reason: shortness of breath or wheezing) Qty: 8.5 0RF prednisone 20 mg tablet 40 mg PO DAILY Qty: 10 0RF cyclobenzaprine 10 mg tablet 10 mg PO TID PRN (Reason: muscle spasm) Qty: 14 0RF Print Language: [place]ian
[2024-07-25 23:23] LABS: MANUAL DIFF FLAG NO
[2024-07-25 23:25] LABS: Basophils Absolute Auto 0.1 X10*3/uL (0.0-0.2); Basophils Percent Auto 0.4 % (0-2); Eosinophils Absolute Auto 0.1 X10*3/uL (0.0-0.4); Eosinophils Percent Auto 0.4 % (0-4); Hematocrit 38.9 % (37.0-47.0); Imm Gran Abs Auto 0.08 X10*3/uL (0.00-0.03); Imm Gran Pct Auto 0.5 % (0.0-0.4); Lymphocytes Absolute Auto 3.2 X10*3/uL (1.2-4.9); Lymphocytes Percent Auto 19.8 % (20-40); Mean Corpuscular HGB Conc 33.4 g/dl (31.0-35.0); Mean Corpuscular Hemoglobin 30.3 pg (27.0-33.0); Mean Corpuscular Volume 90.7 fL (80.0-98.0); Monocytes Absolute Auto 0.9 X10*3/uL (0.1-1.2); Monocytes Percent Auto 5.8 % (2-11); Neutrophils Absolute Auto 11.7 x10*3/uL (2.0-8.3); Neutrophils Percent Auto 73.1 % (45-73); Platelet Count 369 X10*3/uL (160-400); Red Blood Count 4.29 X10*6/uL (4.20-5.50); Red Cell Distribution Width 13.3 % (11.0-16.0)
[2024-07-25 23:26] LABS: Appearance Urine Clear; Color Urine Yellow; Glucose Urine UA Negative (Negative); Leukocyte Esterase Urine Small (1+) (Negative); Nitrite Urine Negative (Negative); PH 5.5 (5.0-9.0); UMIC TRIGGER UACC YES; Urine Blood Small (1+) (Negative); Urine Ketones Negative (Negative); Urine Protein Negative (Neg-Trace)
[2024-07-25 23:35] LABS: Bacteria Urine None Seen (None Seen); Hyaline Casts Urine 0-2 /LPF (0-2); UACC Culture Trigger YES
[2024-07-25 23:47] LABS: Alanine Aminotransferase 19 U/L (0-31); Albumin Level 4.4 g/dL (3.5-5.0); Alkaline Phosphatase 110 U/L (39-117); Anion Gap 14 (12-20); Aspartate Amino Transferase 20 U/L (5-31); Bilirubin Direct < 0.2 mg/dL (0.0-0.5); Bilirubin Total 0.2 mg/dL (0.0-1.0); Blood Urea Nitrogen 15 mg/dL (9-16); Calcium 9.7 mg/dL (8.4-10.2); Carbon Dioxide 25 mmol/L (22-29); Chloride 105 mmol/L (96-108); Creatinine Clr Calc Pharmacy 58.2; Estimated Glomerular Filt Rate > 60; Glucose Random 147 mg/dL (60-115); Lipase 20 U/L (8-78); Potassium 3.8 mmol/L (3.3-5.1); Sodium 140 mmol/L (135-145); Total Protein 7.1 g/dL (6.5-8.0)
[2024-07-25 23:48] LABS: HCG Quantitative < 2 mIU/mL
[2024-07-26 02:15] VITALS: BP 176/104; PULSE 98; RESP 18; TEMP 37.1; O2SAT 99
[2024-07-26] MEDS: Ibuprofen 600 MG TABLET PO (02:16)
[2024-07-26] MEDS: cefuroxime axetiL 500 MG TABLET PO (02:16)
[2024-07-26] MEDS: Ondansetron ODT 4 MG TAB.RAPDIS TRANSLINGU (02:16)
== END 2024-07-26 02:20 | disposition home or self-care (01) ==
PROVIDERS: Emergency Provider Emergency Medicine; PCP Internal Medicine
DX: N30.00 Acute cystitis without hematuria (principal); R10.9 Unspecified abdominal pain; R11.0 Nausea; R50.9 Fever, unspecified; R30.0 Dysuria; Z79.899 Other long term (current) drug therapy
CPT/HCPCS: 36415; 74176; 80048; 80076; 81001; 83690; 83735; 84702; 85025; 87086; 87088; 87186; 96361; 96374; 96375; 99283; 99284

== ENCOUNTER 2024-08-02 22:49 | Emergency (ER) | payer OTHER, SELFPAY ==
[2024-08-02 22:53] VITALS: BP 174/82; PULSE 68; O2SAT 96
[2024-08-02 23:16] VITALS: BP 200/108; PULSE 105; RESP 18; TEMP 36.8; O2SAT 96; BMI 22.3
[2024-08-02] MEDS: Ondansetron ODT 4 MG TAB.RAPDIS TRANSLINGU (23:26)
[2024-08-02 23:59] LABS: MANUAL DIFF FLAG NO
[2024-08-03] LABS: Basophils Absolute Auto 0.1 X10*3/uL (0.0-0.2); Basophils Percent Auto 0.4 % (0-2); Eosinophils Absolute Auto 0.1 X10*3/uL (0.0-0.4); Eosinophils Percent Auto 0.6 % (0-4); Hematocrit 40.4 % (37.0-47.0); Hemoglobin 13.6 g/dl (12.0-16.0); Imm Gran Abs Auto 0.07 X10*3/uL (0.00-0.03); Imm Gran Pct Auto 0.4 % (0.0-0.4); Lymphocytes Absolute Auto 2.8 X10*3/uL (1.2-4.9); Lymphocytes Percent Auto 17.1 % (20-40); Mean Corpuscular HGB Conc 33.7 g/dl (31.0-35.0); Mean Corpuscular Hemoglobin 30.6 pg (27.0-33.0); Mean Corpuscular Volume 90.8 fL (80.0-98.0); Monocytes Absolute Auto 1.1 X10*3/uL (0.1-1.2); Monocytes Percent Auto 6.8 % (2-11); Neutrophils Absolute Auto 12.1 x10*3/uL (2.0-8.3); Neutrophils Percent Auto 74.7 % (45-73); Platelet Count 320 X10*3/uL (160-400); Red Blood Count 4.45 X10*6/uL (4.20-5.50); Red Cell Distribution Width 13.1 % (11.0-16.0); White Blood Count 16.2 X10*3/uL (4.8-10.8)
[2024-08-03 00:13] LABS: Alanine Aminotransferase 29 U/L (0-31); Albumin Level 4.4 g/dL (3.5-5.0); Alkaline Phosphatase 99 U/L (39-117); Anion Gap 13 (12-20); Aspartate Amino Transferase 24 U/L (5-31); Bilirubin Total 0.2 mg/dL (0.0-1.0); Blood Urea Nitrogen 13 mg/dL (9-16); Calcium 9.6 mg/dL (8.4-10.2); Carbon Dioxide 26 mmol/L (22-29); Chloride 105 mmol/L (96-108); Creatinine Clr Calc Pharmacy 62.7; Estimated Glomerular Filt Rate > 60; Glucose Random 96 mg/dL (60-115); Potassium 4.6 mmol/L (3.3-5.1); Sodium 139 mmol/L (135-145); Total Protein 7.4 g/dL (6.5-8.0)
== END 2024-08-03 02:58 | disposition left against medical advice (07) ==
PROVIDERS: Emergency Provider Emergency Medicine
DX: R51.9 Headache, unspecified (principal); R11.2 Nausea with vomiting, unspecified
CPT/HCPCS: 36415; 80053; 85025; 99281